=== PATIENT | male | born 1935 | race Caucasian/White ===

== ENCOUNTER 2017-11-10 19:55 | Inpatient (IN) | payer MEDICARE, BC ==
--- NOTE | 2017-11-10 21:07 | RAD ---
INDICATION: Cough. Recent bronchitis. Cardiac disease. COMPARISON: September 08, 2017 chest radiograph. TECHNIQUE: Dual energy PA and routine lateral views of the chest were obtained. REPORT: New peripheral alveolar consolidation at the RIGHT midlung zone likely involving the RIGHT upper lobe. Additional mild alveolar consolidation at the RIGHT lung base. Negative for pleural effusion or pneumothorax. The heart, pulmonary vasculature, and mediastinal contours are unremarkable. IMPRESSION: RIGHT lung inflammatory infiltrates new compared with the September 08, 2017 exam. Radiographic follow-up after therapy warranted to assess for resolution.
[2017-11-10 21:10] LABS: Urine Appearance Clear; Urine Blood 1+ (Negative); Urine Color Yellow; Urine Ketones 1+ (Negative); Urine Protein Negative (Negative); Urine Specific Gravity 1.023 (1.010-1.030); Urine Urobilinogen Positive (Negative)
[2017-11-10] MEDS ORDERED: cefTRIAXone(*) 1 GM in NS 0.9% 50 ML* 50 ML IVPB ONE (22:11)
[2017-11-10] MEDS ORDERED: Azithromycin IV(*) 500 MG in NS 0.9% 250 ML* 250 ML IVPB ONE (22:11)
[2017-11-10 22:24] LABS: ABS Basophils 0.1 10^3/ul (0-0.2); ABS Eosinophils 0 10^3/ul (0-0.6); ABS Lymphocytes 1.5 10^3/ul (1.0-4.8); ABS Monocytes 1.1 10^3/ul (0-0.8); ABS Neutrophils 12.7 10^3/ul (1.5-7.7); ABS Nucleated RBC 0 10^3/ul; Eosinophil % 0.1 % (0-6); Hematocrit 41 % (42-52); Hemoglobin 13.8 g/dl (14.0-18.0); Lymphocyte % 9.5 % (25-47); Mean Corpuscular HGB Conc 34 g/dl (31-36); Mean Corpuscular Hemoglobin 31 pg (27-31); Mean Corpuscular Volume 91 fL (80-94); Mean Platelet Volume 6.8 um3 (7.4-10.4); Nucleated Red Blood Cells % 0; Platelet Count 246 10^3/ul (150-450); Red Blood Count 4.47 10^6/ul (4.0-5.4); Red Cell Distribution Width 14 % (10.5-15); White Blood Count 15.3 10^3/ul (3.5-10.8)
[2017-11-10 22:44] LABS: INR 1.26 (0.77-1.02)
[2017-11-10 22:46] LABS: EGFR Non-African American 64.9 (>60)
[2017-11-11] MEDS ORDERED: Ondansetron ODT TAB* 4 MG PO PRN (01:39)
[2017-11-11] MEDS ORDERED: Melatonin 3 MG TAB PO PRN (01:39)
[2017-11-11] MEDS ORDERED: Albuterol 2.5 MG/3 ML NEB.SOL* (0.083%) INH PRN (01:39)
[2017-11-11] MEDS ORDERED: NS 0.9% 1000 ML* 1,000 ML IV SCH (01:45)
[2017-11-11] MEDS: Benzonatate CAP* 100 MG PO PRN ×2 (03:01→18:46)
[2017-11-11] MEDS: Acetaminoph/Cod 120/12 mg LIQ* 5 ML UDC PO PRN ×2 (03:02→14:28)
--- NOTE | 2017-11-11 03:17 | HP ---
H&P (Free Text) History and Physical: PCP: PRISCILLA Crouch MD Date/Time: 11/11/2017 0130 CC: cough HPI: Mr Hill is a 82YO male HX HTN, HLD, & Petersen's/GERD who garcia in [place] and was there with his in August when he was diagnosed with "bronchitis" and treated with an unknown antibiotic. In early September, his unexpectedly of an NH. When he was returning to the area with his grand-daughter who is an GRE[employer] MARKETING ANALYST, they stopped at an urgent care and he was diagnosed with pneumonia and his antibiotic changed, again he is uncertain as to the name. His PCP extended this ABX to 14 days, but he continues to have a prominent cough producing sputum mainly in the AMs. He has had intermittent F/C & rigors, but no sweats. He reports chest discomfort only with cough. There has been no N/V/D, CHARLES, or other issues. PMedHx HTN HLD GERD Petersen's esophagus BPH Ambulatory Orders Aspirin 81 mg CHEW TAB* [Aspirin Low Dose TAB*] 81 mg PO DAILY 04/28/14 Esomeprazole(NF) [NEXium(NF)] 20 mg PO BID 04/28/14 Gluc Oropeza/Chondro Oropeza A/Vit C/Mn [Glucosamine/Chondroitin] 1 cap PO BID 04/28/14 Hydrochlorothiazide TAB* [Hydrodiuril TAB*] 25 mg PO DAILY 04/28/14 Simvastatin TAB(NF) [Zocor(NF)] 40 mg PO 1700 04/28/14 Meclizine TAB* [Antivert TAB*] 25 mg PO TID PRN 03/31/15 Zolpidem Tartrate [Ambien] 5 mg PO BEDTIME PRN 03/31/15 Flomax 0.4 mg PO DAILY 11/11/17 Allergies No Known Allergies Allergy (Verified 06/21/17 14:12) PSurgHx appendectomy SocHx: former smoker w/ ~25PYHX, rare alcohol, no recreational drugs; recently , lives alone; 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; full codes status FamHx: reviewed & non-contributory to current complaint ROS: as above, otherwise reviewed and all were negative vitals: Vital Signs Temp 37.1 C 11/11/17 02:26 Pulse 88 05/11/18 02:26 Resp 18 11/11/17 03:02 BP 146/75 11/11/17 02:26 Pulse Ox 96 11/11/17 02:26 Intake & Output 11/10/17 11/10/17 11/11/17 11:59 23:59 11:59 Intake Total 250 50 Balance 250 50 Weight 78.018 kg Intake: IV Fluids 250 50 Constitutional: NAD, normally developed, overweight white male HEENM: atraumatic; sclera/conjunctiva: anicteric/clear; hearing: clinically intact; oropharynx: clear, mucosa moist Neck: soft tissue: non-tender; thyroid: normal Pulmonary: scant R>L crackles, fair to good aeration, no accessory muscle use CV: RR/RR, normal S1S2, no carotid bruit, no jugular venous distention, 2+ B DP/ PT, no edema Abdominal: soft, non-distended, non-tender, no rebound/guarding/rigidity, normoactive bowel sounds, no hepatosplenomegaly or masses, no costovertebral angle tenderness Musculoskeletal: general: grossly intact, non-tender Integumental: normal appearance and texture of exposed skin Psychiatric orientation: AA&O to PPS affect: fatigued mood: cooperative eye contact: fair content: reliable responses: timely insight: good Testing: Lab Results 11/10/17 11/10/17 11/10/17 Range/Units 20:12 21:21 22:13 WBC (3.5-10.8) 10^3/ul RBC (4.0-5.4) 10^6/ul Hgb (14.0-18.0) g/dl Hct (42-52) % MCV (80-94) fL MCH (27-31) pg MCHC (31-36) g/dl RDW (10.5-15) % Plt Count (150-450) 10^3/ul MPV (7.4-10.4) um3 Neut % (Auto) (38-83) % Lymph % (Auto) (25-47) % Mcclain % (Auto) (0-7) % Eos % (Auto) (0-6) % Baso % (Auto) (0-2) % Absolute Neuts (auto) (1.5-7.7) 10^3/ul Absolute Lymphs (auto) (1.0-4.8) 10^3/ul Absolute Monos (auto) (0-0.8) 10^3/ul Absolute Eos (auto) (0-0.6) 10^3/ul Absolute Basos (auto) (0-0.2) 10^3/ul Absolute Nucleated RBC 10^3/ul Nucleated RBC % INR (Anticoag Therapy) (0.77-1.02) APTT (26.0-36.3) seconds Sodium 132 L (139-145) mmol/L Potassium 3.8 (3.5-5.0) mmol/L Chloride 96 L (101-111) mmol/L Carbon Dioxide 27 (22-32) mmol/L Anion Gap 9 (2-11) mmol/L BUN 18 (6-24) mg/dL Creatinine 1.09 (0.67-1.17) mg/dL Est GFR ( Amer) 83.5 (>60) Est GFR (Non-Af Amer) 64.9 (>60) BUN/Creatinine Ratio 16.5 (8-20) Glucose 120 H (70-100) mg/dL Lactic Acid (0.5-2.0) mmol/L Calcium 9.3 (8.6-10.3) mg/dL Total Bilirubin 1.00 (0.2-1.0) mg/dL AST 20 (13-39) U/L ALT 11 (7-52) U/L Alkaline Phosphatase 44 (34-104) U/L Troponin I 0.01 (<0.04) ng/mL B-Natriuretic Peptide ( - 100) pg/mL Total Protein 7.4 (6.4-8.9) g/dL Albumin 3.9 (3.2-5.2) g/dL Globulin 3.5 (2-4) g/dL Albumin/Globulin Ratio 1.1 (1-3) Urine Color Yellow Urine Appearance Clear Urine pH 6.0 (5-9) Ur Specific [place] 1.023 (1.010-1.030) Urine Protein Negative (Negative) Urine Ketones 1+ A (Negative) Urine Blood 1+ A (Negative) Urine Nitrate Negative (Negative) Urine Bilirubin Negative (Negative) Urine Urobilinogen Positive A (Negative) Ur Leukocyte Esterase Negative (Negative) Urine WBC (Auto) Trace(0-5/hpf) (Absent) Urine RBC (Auto) 2+(6-10/hpf) A (Absent) Ur Squamous Epith Cells Present A (Absent) Urine Bacteria Absent (Absent) Urine Glucose Negative (Negative) Influenza A (Rapid) Negative (Negative) Influenza B (Rapid) Negative (Negative) 11/10/17 11/10/17 11/10/17 Range/Units 22:13 22:13 22:14 WBC 15.3 H (3.5-10.8) 10^3/ul RBC 4.47 (4.0-5.4) 10^6/ul Hgb 13.8 L (14.0-18.0) g/dl Hct 41 L (42-52) % MCV 91 (80-94) fL MCH 31 (27-31) pg MCHC 34 (31-36) g/dl RDW 14 (10.5-15) % Plt Count 246 (150-450) 10^3/ul MPV 6.8 L (7.4-10.4) um3 Neut % (Auto) 82.8 (38-83) % Lymph % (Auto) 9.5 L (25-47) % Mcclain % (Auto) 7.1 H (0-7) % Eos % (Auto) 0.1 (0-6) % Baso % (Auto) 0.5 (0-2) % Absolute Neuts (auto) 12.7 H (1.5-7.7) 10^3/ul Absolute Lymphs (auto) 1.5 (1.0-4.8) 10^3/ul Absolute Monos (auto) 1.1 H (0-0.8) 10^3/ul Absolute Eos (auto) 0 (0-0.6) 10^3/ul Absolute Basos (auto) 0.1 (0-0.2) 10^3/ul Absolute Nucleated RBC 0 10^3/ul Nucleated RBC % 0 INR (Anticoag Therapy) (0.77-1.02) APTT (26.0-36.3) seconds Sodium (139-145) mmol/L Potassium (3.5-5.0) mmol/L Chloride (101-111) mmol/L Carbon Dioxide (22-32) mmol/L Anion Gap (2-11) mmol/L BUN (6-24) mg/dL Creatinine (0.67-1.17) mg/dL Est GFR ( Amer) (>60) Est GFR (Non-Af Amer) (>60) BUN/Creatinine Ratio (8-20) Glucose (70-100) mg/dL Lactic Acid 1.0 (0.5-2.0) mmol/L Calcium (8.6-10.3) mg/dL Total Bilirubin (0.2-1.0) mg/dL AST (13-39) U/L ALT (7-52) U/L Alkaline Phosphatase (34-104) U/L Troponin I (<0.04) ng/mL B-Natriuretic Peptide 82 ( - 100) pg/mL Total Protein (6.4-8.9) g/dL Albumin (3.2-5.2) g/dL Globulin (2-4) g/dL Albumin/Globulin Ratio (1-3) Urine Color Urine Appearance Urine pH (5-9) Ur Specific [place] (1.010-1.030) Urine Protein (Negative) Urine Ketones (Negative) Urine Blood (Negative) Urine Nitrate (Negative) Urine Bilirubin (Negative) Urine Urobilinogen (Negative) Ur Leukocyte Esterase (Negative) Urine WBC (Auto) (Absent) Urine RBC (Auto) (Absent) Ur Squamous Epith Cells (Absent) Urine Bacteria (Absent) Urine Glucose (Negative) Influenza A (Rapid) (Negative) Influenza B (Rapid) (Negative) 11/10/17 Range/Units 22:14 WBC (3.5-10.8) 10^3/ul RBC (4.0-5.4) 10^6/ul Hgb (14.0-18.0) g/dl Hct (42-52) % MCV (80-94) fL MCH (27-31) pg MCHC (31-36) g/dl RDW (10.5-15) % Plt Count (150-450) 10^3/ul MPV (7.4-10.4) um3 Neut % (Auto) (38-83) % Lymph % (Auto) (25-47) % Mcclain % (Auto) (0-7) % Eos % (Auto) (0-6) % Baso % (Auto) (0-2) % Absolute Neuts (auto) (1.5-7.7) 10^3/ul Absolute Lymphs (auto) (1.0-4.8) 10^3/ul Absolute Monos (auto) (0-0.8) 10^3/ul Absolute Eos (auto) (0-0.6) 10^3/ul Absolute Basos (auto) (0-0.2) 10^3/ul Absolute Nucleated RBC 10^3/ul Nucleated RBC % INR (Anticoag Therapy) 1.26 H (0.77-1.02) APTT 30.2 (26.0-36.3) seconds Sodium (139-145) mmol/L Potassium (3.5-5.0) mmol/L Chloride (101-111) mmol/L Carbon Dioxide (22-32) mmol/L Anion Gap (2-11) mmol/L BUN (6-24) mg/dL Creatinine (0.67-1.17) mg/dL Est GFR ( Amer) (>60) Est GFR (Non-Af Amer) (>60) BUN/Creatinine Ratio (8-20) Glucose (70-100) mg/dL Lactic Acid (0.5-2.0) mmol/L Calcium (8.6-10.3) mg/dL Total Bilirubin (0.2-1.0) mg/dL AST (13-39) U/L ALT (7-52) U/L Alkaline Phosphatase (34-104) U/L Troponin I (<0.04) ng/mL B-Natriuretic Peptide ( - 100) pg/mL Total Protein (6.4-8.9) g/dL Albumin (3.2-5.2) g/dL Globulin (2-4) g/dL Albumin/Globulin Ratio (1-3) Urine Color Urine Appearance Urine pH (5-9) Ur Specific Whitman (1.010-1.030) Urine Protein (Negative) Urine Ketones (Negative) Urine Blood (Negative) Urine Nitrate (Negative) Urine Bilirubin (Negative) Urine Urobilinogen (Negative) Ur Leukocyte Esterase (Negative) Urine WBC (Auto) (Absent) Urine RBC (Auto) (Absent) Ur Squamous Epith Cells (Absent) Urine Bacteria (Absent) Urine Glucose (Negative) Influenza A (Rapid) (Negative) Influenza B (Rapid) (Negative) ECG, personally reviewed: NSR rate 89, no ischemia CXR, personally reviewed: IMPRESSION: RIGHT lung inflammatory infiltrates new compared with the September 08, 2017 exam. Radiographic follow-up after therapy warranted to assess for resolution. Impression: 82M HX HTN, HLD, GERD, & Petersen's esophagus presents with RML pneumonia failed outpatient ABX DIAGNOSIS & PLAN Primary sepsis (HR >90, leukocytosis >12) 2nd to RML pneumonia : IV ABX : IVFs : blood & sputum CXs : urine Legionella & S pneumo antigens : supplemental oxygen : anti-tussives : supportive care Secondary HTN : hold HCTZ HLD : continue simvastatins GERD/Petersen's esophagus : PO omeprazole BPH : continue tamsulosin Admission Rational: 82M sepsis 2nd RML pneumonia failed outpatient ABX DVTp: SCDs & heparin SQ Code Status: full HCP: sonBurton
[2017-11-11] MEDS: Omeprazole CAP* 20 MG PO SCH (05:51)
--- NOTE | 2017-11-11 06:20 | ED ---
Christiano Nieves Rebecca, scribed for Anotni Mooney MD on 11/10/17 at 2104 . Respiratory - HPI Summary HPI Summary: Pt is an 82 y/o M who presents to ED c/o cough for 3-4 days. Cough is productive with yellow sputum and no blood. Has not treated symptoms with any medication. Additionally c/o fever (101.3), fatigue, generalized weakness and balance loss while ambulating. Denies CP, SOB. Takes ASA daily. Is able to lay flat without experiencing dyspnea. SHx former smoker - quit in 1981. PMHx bronchitis, PNA ( 2 courses of Abx.). Reports his PCP, Dr. Wu, has previously mentioned crackles to auscultation of his lungs. - History of Current Complaint Chief Complaint: EDUpperRespComplaint Stated Complaint: ABNORM GI ISSUE/DIZZINESS Time Seen by Provider: 11/10/17 20:54 Hx Obtained From: Patient Onset/Duration: Lasting Days - 3-4 days, Still Present Current Severity: None Pain Intensity: 0 Character: Cough (Productive) Sputum Color: Yellow Associated Signs and Symptoms: Fever - Allergy/Home Medications Allergies/Adverse Reactions: Allergies Allergy/AdvReac Type Severity Reaction Status Date / Time No Known Allergies Allergy Verified 06/21/17 14:12 Home Medications: Home Medications Flomax 0.4 mg PO DAILY 11/11/17 [History Confirmed 11/11/17] PMH/Surg Hx/FS Hx/Imm Hx Endocrine/Hematology History: Denies: Hx Diabetes Cardiovascular History: Denies: Hx Hypertension, Hx Pacemaker/ICD History: Denies: Hx Renal Disease Sensory History: Denies: Hx Hearing Aid Psychiatric History: Denies: Hx Panic Disorder - Cancer History Cancer Type, 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 cardiac stent 1998. fistula;. pilonidal cyst;. APPENDECTOMY Infectious Disease History: No Infectious Disease History: Denies: History Other Infectious Disease, Traveled Outside the [place] in Last 30 Days - Family History Known Family History: Positive: Cardiac Disease, Diabetes, Other - Colon CA - Social History Alcohol Use: Rare Substance Use Type: Reports: None Smoking Status (MU): Former Smoker Have You Smoked in the Last Year: No Review of Systems Positive: Fever, Fatigue, Other - Generalized weakness Negative: Chest Pain Positive: Cough. Negative: Shortness Of Breath Neurological: Other - Balance loss All Other Systems Reviewed And Are Negative: Yes Physical Exam - Summary Physical Exam Summary: GENERAL: ~Patient is a well developed and nourished M who is lying comfortable in the stretcher. ~Patient is not in any acute respiratory distress. HEAD AND FACE: Normocephalic EYES: PERRLA, EOMI x 2. EARS: Hearing grossly intact. MOUTH: Oropharynx within normal limits. NECK: Supple, trachea is midline, no adenopathy, no JVD, no carotid bruit. CHEST: Symmetric, no tenderness at palpation LUNGS: Crackles bilaterally. No wheezing. CVS: Regular rate and rhythm, S1 and S2 present, no murmurs or gallops appreciated. ABDOMEN: Soft, non-tender. Bowel sounds are normal. No abdominal abnormal pulsations. EXTREMITIES: Full ROM in all major joints, no cyanosis or clubbing. 1+ pitting edema, bilaterally. NEURO: Alert and oriented x 3. No acute neurological deficits. Speech is normal and follows commands. SKIN: Dry and warm Triage Information Reviewed: Yes Vital Signs On Initial Exam: Initial Vitals Temp Pulse Resp BP Pulse Ox 99.6 F 116 16 115/58 99 11/10/17 20:08 11/10/17 20:08 11/10/17 20:08 11/10/17 20:08 11/10/17 20:08 Vital Signs Reviewed: Yes Diagnostics - Vital Signs Vital Signs Temp Pulse Resp BP Pulse Ox 11/10/17 20:08 99.6 F 116 16 115/58 99 - Laboratory Lab Results: Lab Results 11/10/17 11/10/17 11/10/17 Range/Units 20:12 21:21 22:13 WBC (3.5-10.8) 10^3/ul RBC (4.0-5.4) 10^6/ul Hgb (14.0-18.0) g/dl Hct (42-52) % MCV (80-94) fL MCH (27-31) pg MCHC (31-36) g/dl RDW (10.5-15) % Plt Count (150-450) 10^3/ul MPV (7.4-10.4) um3 Neut % (Auto) (38-83) % Lymph % (Auto) (25-47) % [place] % (Auto) (0-7) % Eos % (Auto) (0-6) % Baso % (Auto) (0-2) % Absolute Neuts (auto) (1.5-7.7) 10^3/ul Absolute Lymphs (auto) (1.0-4.8) 10^3/ul Absolute Monos (auto) (0-0.8) 10^3/ul Absolute Eos (auto) (0-0.6) 10^3/ul Absolute Basos (auto) (0-0.2) 10^3/ul Absolute Nucleated RBC 10^3/ul Nucleated RBC % INR (Anticoag Therapy) (0.77-1.02) APTT (26.0-36.3) seconds Sodium 132 L (139-145) mmol/L Potassium 3.8 (3.5-5.0) mmol/L Chloride 96 L (101-111) mmol/L Carbon Dioxide 27 (22-32) mmol/L Anion Gap 9 (2-11) mmol/L BUN 18 (6-24) mg/dL Creatinine 1.09 (0.67-1.17) mg/dL Est GFR ( Amer) 83.5 (>60) Est GFR (Non-Af Amer) 64.9 (>60) BUN/Creatinine Ratio 16.5 (8-20) Glucose 120 H (70-100) mg/dL Lactic Acid (0.5-2.0) mmol/L Calcium 9.3 (8.6-10.3) mg/dL Total Bilirubin 1.00 (0.2-1.0) mg/dL AST 20 (13-39) U/L ALT 11 (7-52) U/L Alkaline Phosphatase 44 (34-104) U/L Troponin I 0.01 (<0.04) ng/mL B-Natriuretic Peptide ( - 100) pg/mL Total Protein 7.4 (6.4-8.9) g/dL Albumin 3.9 (3.2-5.2) g/dL Globulin 3.5 (2-4) g/dL Albumin/Globulin Ratio 1.1 (1-3) Urine Color Yellow Urine Appearance Clear Urine pH 6.0 (5-9) Ur Specific [place] 1.023 (1.010-1.030) Urine Protein Negative (Negative) Urine Ketones 1+ A (Negative) Urine Blood 1+ A (Negative) Urine Nitrate Negative (Negative) Urine Bilirubin Negative (Negative) Urine Urobilinogen Positive A (Negative) Ur Leukocyte Esterase Negative (Negative) Urine WBC (Auto) Trace(0-5/hpf) (Absent) Urine RBC (Auto) 2+(6-10/hpf) A (Absent) Ur Squamous Epith Cells Present A (Absent) Urine Bacteria Absent (Absent) Urine Glucose Negative (Negative) Influenza A (Rapid) Negative (Negative) Influenza B (Rapid) Negative (Negative) 11/10/17 11/10/17 11/10/17 Range/Units 22:13 22:13 22:14 WBC 15.3 H (3.5-10.8) 10^3/ul RBC 4.47 (4.0-5.4) 10^6/ul Hgb 13.8 L (14.0-18.0) g/dl Hct 41 L (42-52) % MCV 91 (80-94) fL MCH 31 (27-31) pg MCHC 34 (31-36) g/dl RDW 14 (10.5-15) % Plt Count 246 (150-450) 10^3/ul MPV 6.8 L (7.4-10.4) um3 Neut % (Auto) 82.8 (38-83) % Lymph % (Auto) 9.5 L (25-47) % [place] % (Auto) 7.1 H (0-7) % Eos % (Auto) 0.1 (0-6) % Baso % (Auto) 0.5 (0-2) % Absolute Neuts (auto) 12.7 H (1.5-7.7) 10^3/ul Absolute Lymphs (auto) 1.5 (1.0-4.8) 10^3/ul Absolute Monos (auto) 1.1 H (0-0.8) 10^3/ul Absolute Eos (auto) 0 (0-0.6) 10^3/ul Absolute Basos (auto) 0.1 (0-0.2) 10^3/ul Absolute Nucleated RBC 0 10^3/ul Nucleated RBC % 0 INR (Anticoag Therapy) (0.77-1.02) APTT (26.0-36.3) seconds Sodium (139-145) mmol/L Potassium (3.5-5.0) mmol/L Chloride (101-111) mmol/L Carbon Dioxide (22-32) mmol/L Anion Gap (2-11) mmol/L BUN (6-24) mg/dL Creatinine (0.67-1.17) mg/dL Est GFR ( Amer) (>60) Est GFR (Non-Af Amer) (>60) BUN/Creatinine Ratio (8-20) Glucose (70-100) mg/dL Lactic Acid 1.0 (0.5-2.0) mmol/L Calcium (8.6-10.3) mg/dL Total Bilirubin (0.2-1.0) mg/dL AST (13-39) U/L ALT (7-52) U/L Alkaline Phosphatase (34-104) U/L Troponin I (<0.04) ng/mL B-Natriuretic Peptide 82 ( - 100) pg/mL Total Protein (6.4-8.9) g/dL Albumin (3.2-5.2) g/dL Globulin (2-4) g/dL Albumin/Globulin Ratio (1-3) Urine Color Urine Appearance Urine pH (5-9) Ur Specific [place] (1.010-1.030) Urine Protein (Negative) Urine Ketones (Negative) Urine Blood (Negative) Urine Nitrate (Negative) Urine Bilirubin (Negative) Urine Urobilinogen (Negative) Ur Leukocyte Esterase (Negative) Urine WBC (Auto) (Absent) Urine RBC (Auto) (Absent) Ur Squamous Epith Cells (Absent) Urine Bacteria (Absent) Urine Glucose (Negative) Influenza A (Rapid) (Negative) Influenza B (Rapid) (Negative) 11/10/17 Range/Units 22:14 WBC (3.5-10.8) 10^3/ul RBC (4.0-5.4) 10^6/ul Hgb (14.0-18.0) g/dl Hct (42-52) % MCV (80-94) fL MCH (27-31) pg MCHC (31-36) g/dl RDW (10.5-15) % Plt Count (150-450) 10^3/ul MPV (7.4-10.4) um3 Neut % (Auto) (38-83) % Lymph % (Auto) (25-47) % [place] % (Auto) (0-7) % Eos % (Auto) (0-6) % Baso % (Auto) (0-2) % Absolute Neuts (auto) (1.5-7.7) 10^3/ul Absolute Lymphs (auto) (1.0-4.8) 10^3/ul Absolute Monos (auto) (0-0.8) 10^3/ul Absolute Eos (auto) (0-0.6) 10^3/ul Absolute Basos (auto) (0-0.2) 10^3/ul Absolute Nucleated RBC 10^3/ul Nucleated RBC % INR (Anticoag Therapy) 1.26 H (0.77-1.02) APTT 30.2 (26.0-36.3) seconds Sodium (139-145) mmol/L Potassium (3.5-5.0) mmol/L Chloride (101-111) mmol/L Carbon Dioxide (22-32) mmol/L Anion Gap (2-11) mmol/L BUN (6-24) mg/dL Creatinine (0.67-1.17) mg/dL Est GFR ( Amer) (>60) Est GFR (Non-Af Amer) (>60) BUN/Creatinine Ratio (8-20) Glucose (70-100) mg/dL Lactic Acid (0.5-2.0) mmol/L Calcium (8.6-10.3) mg/dL Total Bilirubin (0.2-1.0) mg/dL AST (13-39) U/L ALT (7-52) U/L Alkaline Phosphatase (34-104) U/L Troponin I (<0.04) ng/mL B-Natriuretic Peptide ( - 100) pg/mL Total Protein (6.4-8.9) g/dL Albumin (3.2-5.2) g/dL Globulin (2-4) g/dL Albumin/Globulin Ratio (1-3) Urine Color Urine Appearance Urine pH (5-9) Ur Specific [place] (1.010-1.030) Urine Protein (Negative) Urine Ketones (Negative) Urine Blood (Negative) Urine Nitrate (Negative) Urine Bilirubin (Negative) Urine Urobilinogen (Negative) Ur Leukocyte Esterase (Negative) Urine WBC (Auto) (Absent) Urine RBC (Auto) (Absent) Ur Squamous Epith Cells (Absent) Urine Bacteria (Absent) Urine Glucose (Negative) Influenza A (Rapid) (Negative) Influenza B (Rapid) (Negative) Result Diagrams: 11/10/17 22:14 11/10/17 22:13 Lab Statement: Any lab studies that have been ordered have been reviewed, and results considered in the medical decision making process. - Radiology CXR Xray Interpretation: Positive (See Comments) - RIGHT lung inflammatory infiltrates new compared with the September 08, 2017 exam. Radiographic follow-up after therapy warranted to assess for resolution. ED physician reviewed this radiology report. Radiology Interpretation Completed By: Radiologist - EKG 2130 Cardiac Rate: NL - 89 bpm EKG Rhythm: Sinus Rhythm EKG Interpretation: Left atrial enlargement Disposition - Course Assessment/Plan: This is an 82 y/o M who presents to ED with productive cough. His workup was remarkable for WBC of 15.3. His CXR confirms PNA. Pt was recently on Abx for outpatient PNA and so will need to be admitted for Abx given that he failed outpatient. Discussed results with the pt and I presented the case to the hospitalist. - Diagnoses Provider Diagnoses: Pneumonia - Physician Notifications Discussed Care Of Patient With: Oswald Mcdowell Time Discussed With Above Provider: 00:32 Instructed by Provider To: Other - Accepts pt for admission. Discharge - Sign-Out/Discharge Documenting (check all that apply): Discharge/Admit/Transfer - Admit - Discharge Plan Condition: Stable Disposition: ADMITTED TO [facility] - Billing Disposition and Condition Condition: STABLE [place] [facility] [place] The documentation as recorded by the Christiano duong Rebecca accurately reflects the service I personally performed and the decisions made by me, Antoni Mooney MD.
[2017-11-11 06:45] LABS: ABS Basophils 0.1 10^3/ul (0-0.2); ABS Eosinophils 0 10^3/ul (0-0.6); ABS Lymphocytes 1.5 10^3/ul (1.0-4.8); ABS Monocytes 1.1 10^3/ul (0-0.8); ABS Neutrophils 11.5 10^3/ul (1.5-7.7); ABS Nucleated RBC 0 10^3/ul; Eosinophil % 0.1 % (0-6); Hematocrit 37 % (42-52); Hemoglobin 12.8 g/dl (14.0-18.0); Lymphocyte % 10.3 % (25-47); Mean Corpuscular HGB Conc 35 g/dl (31-36); Mean Corpuscular Hemoglobin 32 pg (27-31); Mean Corpuscular Volume 91 fL (80-94); Mean Platelet Volume 6.8 um3 (7.4-10.4); Nucleated Red Blood Cells % 0.1; Platelet Count 232 10^3/ul (150-450); Red Blood Count 4.07 10^6/ul (4.0-5.4); Red Cell Distribution Width 14 % (10.5-15); White Blood Count 14.1 10^3/ul (3.5-10.8)
[2017-11-11 07:01] LABS: EGFR Non-African American 70.9 (>60)
[2017-11-11] MEDS: Aspirin 81 mg CHEW TAB* 81 MG TAB.CHEW PO SCH (09:46)
[2017-11-11] MEDS: Tamsulosin CAP* 0.4 MG PO SCH (09:46)
[2017-11-11] MEDS: Docusate CAP* 100 MG PO SCH ×2 (09:47→20:11)
[2017-11-11] MEDS ORDERED: Potassium Chlor TAB* 20 MEQ TAB.ER PO ONE (13:04)
--- NOTE | 2017-11-11 16:57 | PN ---
Subjective Date of Service: 11/11/17 Interval History: Mr. Winchester reports feeling a little better today. He still has some productive cough with thick sputum. No fever or chills last night. He is really wishing to have regular diet a coffee for lunch. Denies chest pain, palpitations, wheezing or SOB. Family History: Unchanged from Admission Social History: Unchanged from Admission Past Medical History: Unchanged from Admission Objective Active Medications: Acetaminophen (Tylenol Tab*) 650 mg PO Q6H PRN PRN Reason: FEVER/PAIN Acetaminophen/Codeine Phosphate (Tylenol/Codeine 120/12 Liq*) 5 ml PO Q6H PRN PRN Reason: cough Last Admin: 11/11/17 14:28 Dose: 5 ml Albuterol (Ventolin 2.5 Mg/3 Ml Neb.Fartun*) 2.5 mg INH Q2H PRN PRN Reason: SOB/WHEEZING Aspirin (Aspirin 81 Mg Chew Tab*) 81 mg PO DAILY [facility] Last Admin: 11/11/17 09:46 Dose: 81 mg Atorvastatin Calcium (Lipitor*) 20 mg PO 1700 [facility] Benzonatate (Tessalon Cap*) 200 mg PO TID PRN PRN Reason: cough Last Admin: 11/11/17 03:01 Dose: 200 mg Docusate Sodium (Colace Cap*) 200 mg PO BID [facility] Last Admin: 11/11/17 09:47 Dose: Not Given Guaifenesin (Mucinex*) 600 mg PO BID [facility] Heparin Sodium (Porcine) (Heparin Vial(*)) 5,000 units SUBCUT Q8HR [facility] Ceftriaxone Sodium 1,000 mg/ (Sodium Chloride) 50 mls @ 200 mls/hr IVPB Q24H [facility] Azithromycin 500 mg/ Sodium (Chloride) 250 mls @ 250 mls/hr IVPB Q24H [facility] Melatonin (Melatonin (Nf)) 3 mg PO BEDTIME PRN; Protocol PRN Reason: Sleep Omeprazole (Prilosec Cap*) 20 mg PO DAILY@0600 [facility] Last Admin: 11/11/17 05:51 Dose: 20 mg Ondansetron HCl (Zofran Odt Tab*) 4 mg PO Q6H PRN PRN Reason: NAUSEA/VOMITING Tamsulosin HCl (Flomax Cap*) 0.4 mg PO DAILY [facility] Last Admin: 11/11/17 09:46 Dose: 0.4 mg Vital Signs - 8 hr 11/11/17 11/11/17 14:28 16:22 Respiratory 17 16 Rate Oxygen Devices in Use Now: None Appearance: Appears comfortable and in NAD Eyes: No Scleral Icterus, PERRLA Ears/Nose/Mouth/Throat: Clear Oropharnyx, Mucous Membranes Moist Neck: NL Appearance and Movements; NL JVP, Trachea Midline Respiratory: Symmetrical Chest Expansion and Respiratory Effort, - - Lungs with minimal bibasilar rhonchi noted. No wheezing. Cardiovascular: NL Sounds; No Murmurs; No JVD, RRR Abdominal: NL Sounds; No Tenderness; No Distention Lymphatic: No Cervical Adenopathy Extremities: No Edema, No Clubbing, Cyanosis Skin: No Rash or Ulcers Neurological: Alert and Oriented x 3, NL Sensation, NL Muscle Strength and Tone Nutrition: Taking PO's Result Diagrams: 11/11/17 06:15 11/11/17 06:15 Additional Lab and Data: Lab Results 11/10/17 11/10/17 11/10/17 Range/Units 20:12 21:21 22:13 WBC (3.5-10.8) 10^3/ul RBC (4.0-5.4) 10^6/ul Hgb (14.0-18.0) g/dl Hct (42-52) % MCV (80-94) fL MCH (27-31) pg MCHC (31-36) g/dl RDW (10.5-15) % Plt Count (150-450) 10^3/ul MPV (7.4-10.4) um3 Neut % (Auto) (38-83) % Lymph % (Auto) (25-47) % [place] % (Auto) (0-7) % Eos % (Auto) (0-6) % Baso % (Auto) (0-2) % Absolute Neuts (auto) (1.5-7.7) 10^3/ul Absolute Lymphs (auto) (1.0-4.8) 10^3/ul Absolute Monos (auto) (0-0.8) 10^3/ul Absolute Eos (auto) (0-0.6) 10^3/ul Absolute Basos (auto) (0-0.2) 10^3/ul Absolute Nucleated RBC 10^3/ul Nucleated RBC % INR (Anticoag Therapy) (0.77-1.02) APTT (26.0-36.3) seconds Sodium 132 L (139-145) mmol/L Potassium 3.8 (3.5-5.0) mmol/L Chloride 96 L (101-111) mmol/L Carbon Dioxide 27 (22-32) mmol/L Anion Gap 9 (2-11) mmol/L BUN 18 (6-24) mg/dL Creatinine 1.09 (0.67-1.17) mg/dL Est GFR ( Amer) 83.5 (>60) Est GFR (Non-Af Amer) 64.9 (>60) BUN/Creatinine Ratio 16.5 (8-20) Glucose 120 H (70-100) mg/dL Lactic Acid (0.5-2.0) mmol/L Calcium 9.3 (8.6-10.3) mg/dL Total Bilirubin 1.00 (0.2-1.0) mg/dL AST 20 (13-39) U/L ALT 11 (7-52) U/L Alkaline Phosphatase 44 (34-104) U/L Troponin I 0.01 (<0.04) ng/mL B-Natriuretic Peptide ( - 100) pg/mL Total Protein 7.4 (6.4-8.9) g/dL Albumin 3.9 (3.2-5.2) g/dL Globulin 3.5 (2-4) g/dL Albumin/Globulin Ratio 1.1 (1-3) Urine Color Yellow Urine Appearance Clear Urine pH 6.0 (5-9) Ur Specific [place] 1.023 (1.010-1.030) Urine Protein Negative (Negative) Urine Ketones 1+ A (Negative) Urine Blood 1+ A (Negative) Urine Nitrate Negative (Negative) Urine Bilirubin Negative (Negative) Urine Urobilinogen Positive A (Negative) Ur Leukocyte Esterase Negative (Negative) Urine WBC (Auto) Trace(0-5/hpf) (Absent) Urine RBC (Auto) 2+(6-10/hpf) A (Absent) Ur Squamous Epith Cells Present A (Absent) Urine Bacteria Absent (Absent) Urine Glucose Negative (Negative) Influenza A (Rapid) Negative (Negative) Influenza B (Rapid) Negative (Negative) 05/10/18 05/10/18 05/10/18 Range/Units 22:13 22:13 22:14 WBC 15.3 H (3.5-10.8) 10^3/ul RBC 4.47 (4.0-5.4) 10^6/ul Hgb 13.8 L (14.0-18.0) g/dl Hct 41 L (42-52) % MCV 91 (80-94) fL MCH 31 (27-31) pg MCHC 34 (31-36) g/dl RDW 14 (10.5-15) % Plt Count 246 (150-450) 10^3/ul MPV 6.8 L (7.4-10.4) um3 Neut % (Auto) 82.8 (38-83) % Lymph % (Auto) 9.5 L (25-47) % [place] % (Auto) 7.1 H (0-7) % Eos % (Auto) 0.1 (0-6) % Baso % (Auto) 0.5 (0-2) % Absolute Neuts (auto) 12.7 H (1.5-7.7) 10^3/ul Absolute Lymphs (auto) 1.5 (1.0-4.8) 10^3/ul Absolute Monos (auto) 1.1 H (0-0.8) 10^3/ul Absolute Eos (auto) 0 (0-0.6) 10^3/ul Absolute Basos (auto) 0.1 (0-0.2) 10^3/ul Absolute Nucleated RBC 0 10^3/ul Nucleated RBC % 0 INR (Anticoag Therapy) (0.77-1.02) APTT (26.0-36.3) seconds Sodium (139-145) mmol/L Potassium (3.5-5.0) mmol/L Chloride (101-111) mmol/L Carbon Dioxide (22-32) mmol/L Anion Gap (2-11) mmol/L BUN (6-24) mg/dL Creatinine (0.67-1.17) mg/dL Est GFR ( Amer) (>60) Est GFR (Non-Af Amer) (>60) BUN/Creatinine Ratio (8-20) Glucose (70-100) mg/dL Lactic Acid 1.0 (0.5-2.0) mmol/L Calcium (8.6-10.3) mg/dL Total Bilirubin (0.2-1.0) mg/dL AST (13-39) U/L ALT (7-52) U/L Alkaline Phosphatase (34-104) U/L Troponin I (<0.04) ng/mL B-Natriuretic Peptide 82 ( - 100) pg/mL Total Protein (6.4-8.9) g/dL Albumin (3.2-5.2) g/dL Globulin (2-4) g/dL Albumin/Globulin Ratio (1-3) Urine Color Urine Appearance Urine pH (5-9) Ur Specific [place] (1.010-1.030) Urine Protein (Negative) Urine Ketones (Negative) Urine Blood (Negative) Urine Nitrate (Negative) Urine Bilirubin (Negative) Urine Urobilinogen (Negative) Ur Leukocyte Esterase (Negative) Urine WBC (Auto) (Absent) Urine RBC (Auto) (Absent) Ur Squamous Epith Cells (Absent) Urine Bacteria (Absent) Urine Glucose (Negative) Influenza A (Rapid) (Negative) Influenza B (Rapid) (Negative) 11/10/17 Range/Units 22:14 WBC (3.5-10.8) 10^3/ul RBC (4.0-5.4) 10^6/ul Hgb (14.0-18.0) g/dl Hct (42-52) % MCV (80-94) fL MCH (27-31) pg MCHC (31-36) g/dl RDW (10.5-15) % Plt Count (150-450) 10^3/ul MPV (7.4-10.4) um3 Neut % (Auto) (38-83) % Lymph % (Auto) (25-47) % [place] % (Auto) (0-7) % Eos % (Auto) (0-6) % Baso % (Auto) (0-2) % Absolute Neuts (auto) (1.5-7.7) 10^3/ul Absolute Lymphs (auto) (1.0-4.8) 10^3/ul Absolute Monos (auto) (0-0.8) 10^3/ul Absolute Eos (auto) (0-0.6) 10^3/ul Absolute Basos (auto) (0-0.2) 10^3/ul Absolute Nucleated RBC 10^3/ul Nucleated RBC % INR (Anticoag Therapy) 1.26 H (0.77-1.02) APTT 30.2 (26.0-36.3) seconds Sodium (139-145) mmol/L Potassium (3.5-5.0) mmol/L Chloride (101-111) mmol/L Carbon Dioxide (22-32) mmol/L Anion Gap (2-11) mmol/L BUN (6-24) mg/dL Creatinine (0.67-1.17) mg/dL Est GFR ( Amer) (>60) Est GFR (Non-Af Amer) (>60) BUN/Creatinine Ratio (8-20) Glucose (70-100) mg/dL Lactic Acid (0.5-2.0) mmol/L Calcium (8.6-10.3) mg/dL Total Bilirubin (0.2-1.0) mg/dL AST (13-39) U/L ALT (7-52) U/L Alkaline Phosphatase (34-104) U/L Troponin I (<0.04) ng/mL B-Natriuretic Peptide ( - 100) pg/mL Total Protein (6.4-8.9) g/dL Albumin (3.2-5.2) g/dL Globulin (2-4) g/dL Albumin/Globulin Ratio (1-3) Urine Color Urine Appearance Urine pH (5-9) Ur Specific [place] (1.010-1.030) Urine Protein (Negative) Urine Ketones (Negative) Urine Blood (Negative) Urine Nitrate (Negative) Urine Bilirubin (Negative) Urine Urobilinogen (Negative) Ur Leukocyte Esterase (Negative) Urine WBC (Auto) (Absent) Urine RBC (Auto) (Absent) Ur Squamous Epith Cells (Absent) Urine Bacteria (Absent) Urine Glucose (Negative) Influenza A (Rapid) (Negative) Influenza B (Rapid) (Negative) Diagnostic Imaging: Patient Name: ERIN WINCHESTER Medical Record#: [id number] Ordering Physician: Antoni Mooney MD Acct.#: [id number] : 1935 Age: 82 Sex: M Location: EMERGENCY DEPARTMENT Exam Date: 11/10/172012 ADM Status: REG ER Order Information: CHEST PA & LAT 2 VWS Accession Number: [id number] CPT: 74329 INDICATION: Cough. Recent bronchitis. Cardiac disease. IMPRESSION: RIGHT lung inflammatory infiltrates new compared with the September 08, 2017 exam. Radiographic follow-up after therapy warranted to assess for resolution. EKG Data: EKG INTERPRETATION ECG Report Patient Name ERIN WINCHESTER Birthdate 1935 Sex M Order Number [id number] Date of ECG 11/10/2017 21:31:48 Interpretation Sinus rhythm.normal P axis, V-rate 60- 99 Left atrial enlargement.P, P'>60mS, <-0.15mV V1 - ABNORMAL ECG - ECG NEEDS E-SIGNING Assess/Plan/Problems-Billing Assessment: An 82 y/o male with hx HTN, HLD, GERD and Petersen's esophagus, who presented to ED with persistent productive cough, fever and chills with CXR revealing Right Middle Lobe pneumonia that failed outpatient treatment. - Patient Problems (1) Sepsis Current Visit: Yes Status: Acute Priority: High Comment: - Patient meets sepsis criteria with HR>90 and leukocytosis >12,000 - IVF and IV antibiotics - Blood and sputum cultures pending - Urine Legionella and S. pneumo negative - Anti-tussive and supportive care - Supplemental oxygen (2) Pneumonia Current Visit: Yes Status: Acute Priority: High Comment: - Continue IV Rocephen and Azithromucin - Repeat CXR in AM - Clinically improving - Added Mucinex (3) HTN (hypertension) Current Visit: No Status: Chronic Comment: - Controlled - Hold HCTZ for now (4) GERD (gastroesophageal reflux disease) Current Visit: No Status: Chronic Comment: - Continue PO Omeprazole (5) Hyperlipidemia Current Visit: No Status: Acute Comment: - Resume simvastatin (6) BPH (benign prostatic hyperplasia) Current Visit: Yes Status: Acute Comment: - Continue Tamsulosin (7) Hypokalemia Current Visit: No Status: Acute Comment: - stable - replete as needed, check BMP in AM (8) DVT prophylaxis Current Visit: No Status: Acute Comment: - Heparin SQ (9) Full code status Current Visit: Yes Status: Acute Status and Disposition: Inpatient for treatment of CAP. Anticipate discharge to home when medically stable.
[2017-11-11] MEDS: Atorvastatin* 20 MG TAB PO SCH (17:34)
[2017-11-11] MEDS: Azithromycin IV(*) 500 MG in NS 0.9% 250 ML* 250 ML IVPB SCH (20:05)
[2017-11-11] MEDS: guaiFENesin ER TAB 600 MG PO SCH (20:11)
[2017-11-11] MEDS: Acetaminophen TAB* 325 MG PO PRN (20:11)
[2017-11-11] MEDS ORDERED: Benzocaine/Menthol LOZ* 1 LOZENGE MT PRN (21:07)
[2017-11-11] MEDS: cefTRIAXone VIAL(*) 1,000 MG in NS 0.9% 50 ML* 50 ML IVPB SCH (21:16)
[2017-11-12] MEDS: Acetaminoph/Cod 120/12 mg LIQ* 5 ML UDC PO PRN (05:54)
[2017-11-12] MEDS: Heparin VIAL(*) 5000 UNITS/ML VIAL (FIVE THOUSAND) SUBCUT SCH ×3 (05:54→21:15)
[2017-11-12] MEDS: Omeprazole CAP* 20 MG PO SCH (05:55)
[2017-11-12 06:58] LABS: ABS Basophils 0.1 10^3/ul (0-0.2); ABS Eosinophils 0.2 10^3/ul (0-0.6); ABS Lymphocytes 1.7 10^3/ul (1.0-4.8); ABS Nucleated RBC 0 10^3/ul; Eosinophil % 1.6 % (0-6); Hematocrit 36 % (42-52); Hemoglobin 12.6 g/dl (14.0-18.0); Lymphocyte % 17.3 % (25-47); Mean Corpuscular HGB Conc 35 g/dl (31-36); Mean Corpuscular Hemoglobin 32 pg (27-31); Mean Corpuscular Volume 90 fL (80-94); Nucleated Red Blood Cells % 0; Platelet Count 244 10^3/ul (150-450); Red Cell Distribution Width 14 % (10.5-15); White Blood Count 9.9 10^3/ul (3.5-10.8)
[2017-11-12] MEDS: Docusate CAP* 100 MG PO SCH ×2 (08:12→19:25)
[2017-11-12] MEDS: guaiFENesin ER TAB 600 MG PO SCH ×2 (08:12→21:15)
[2017-11-12] MEDS: Tamsulosin CAP* 0.4 MG PO SCH (08:12)
[2017-11-12] MEDS: Aspirin 81 mg CHEW TAB* 81 MG TAB.CHEW PO SCH (08:12)
--- NOTE | 2017-11-12 09:06 | RAD ---
Indication: Follow-up pneumonia. Single frontal view of the chest performed at 0710 hours was reviewed. Comparison is made with previous exam dated November 10, 2017. No mediastinal shift is noted. Heart is of normal size and configuration. Right upper lobe wedge-shaped density consistent with pneumonia has progressed since previous exam.. IMPRESSION: PROGRESSIVE RIGHT UPPER LOBE PNEUMONIA.
[2017-11-12] MEDS: Acetaminophen TAB* 325 MG PO PRN (14:13)
--- NOTE | 2017-11-12 15:52 | PN ---
Subjective Date of Service: 11/12/17 Interval History: Mr. Winchester continues to improve daily. He still has some productive cough, but getting better. Denies wheezing or SOB. Fever 100.6 last evening, resolved, no chills. He is eating well, wonder if he can go home today. Family History: Unchanged from Admission Social History: Unchanged from Admission Past Medical History: Unchanged from Admission Objective Active Medications: Acetaminophen (Tylenol Tab*) 650 mg PO Q6H PRN PRN Reason: FEVER/PAIN Last Admin: 11/12/17 14:13 Dose: 650 mg Acetaminophen/Codeine Phosphate (Tylenol/Codeine 120/12 Liq*) 5 ml PO Q6H PRN PRN Reason: cough Last Admin: 11/12/17 05:54 Dose: 5 ml Albuterol (Ventolin 2.5 Mg/3 Ml Neb.Fartun*) 2.5 mg INH Q2H PRN PRN Reason: SOB/WHEEZING Aspirin (Aspirin 81 Mg Chew Tab*) 81 mg PO DAILY [facility] Last Admin: 11/12/17 08:12 Dose: 81 mg Atorvastatin Calcium (Lipitor*) 20 mg PO 1700 [facility] Last Admin: 11/11/17 17:34 Dose: 20 mg Benzonatate (Tessalon Cap*) 200 mg PO TID PRN PRN Reason: cough Last Admin: 11/11/17 18:46 Dose: 200 mg Docusate Sodium (Colace Cap*) 200 mg PO BID [facility] Last Admin: 11/12/17 08:12 Dose: Not Given Guaifenesin (Mucinex*) 600 mg PO BID [facility] Last Admin: 11/12/17 08:12 Dose: 600 mg Heparin Sodium (Porcine) (Heparin Vial(*)) 5,000 units SUBCUT Q8HR [facility] Last Admin: 11/12/17 14:09 Dose: 5,000 units Ceftriaxone Sodium 1,000 mg/ (Sodium Chloride) 50 mls @ 200 mls/hr IVPB Q24H [facility] Last Admin: 11/11/17 21:16 Dose: 200 mls/hr Azithromycin 500 mg/ Sodium (Chloride) 250 mls @ 250 mls/hr IVPB Q24H [facility] Last Admin: 11/11/17 20:05 Dose: 250 mls/hr Melatonin (Melatonin (Nf)) 3 mg PO BEDTIME PRN; Protocol PRN Reason: Sleep Omeprazole (Prilosec Cap*) 20 mg PO DAILY@0600 [facility] Last Admin: 11/12/17 05:55 Dose: 20 mg Ondansetron HCl (Zofran Odt Tab*) 4 mg PO Q6H PRN PRN Reason: NAUSEA/VOMITING Tamsulosin HCl (Flomax Cap*) 0.4 mg PO DAILY [facility] Last Admin: 11/12/17 08:12 Dose: 0.4 mg Throat Lozenges (Chloraseptic Manav*) 1 manav MT Q6H PRN PRN Reason: SORE THROAT Vital Signs - 8 hr 11/12/17 11/12/17 11/12/17 07:48 08:00 08:09 Temperature Pulse Rate 77 Respiratory 19 20 18 Rate Blood Pressure (mmHg) O2 Sat by Pulse 91 Oximetry 11/12/17 11/12/17 11/12/17 11:32 14:12 15:32 Temperature 98.6 F 101.0 F 101.8 F Pulse Rate 73 86 Respiratory 23 20 Rate Blood Pressure 125/48 122/53 (mmHg) O2 Sat by Pulse 100 92 Oximetry Oxygen Devices in Use Now: None Appearance: Sitting in bed, finished his breakfast, appears comfortable and in NAD Eyes: No Scleral Icterus, PERRLA Ears/Nose/Mouth/Throat: Clear Oropharnyx, Mucous Membranes Moist Neck: Trachea Midline, No Thyroid Enlargement, Masses Respiratory: Symmetrical Chest Expansion and Respiratory Effort, Clear to Auscultation - minimal crackles to R base, no wheezes or rhonchi Cardiovascular: NL Sounds; No Murmurs; No JVD, RRR Abdominal: NL Sounds; No Tenderness; No Distention Lymphatic: No Cervical Adenopathy Extremities: No Edema Skin: No Rash or Ulcers Neurological: Alert and Oriented x 3, NL Sensation, NL Muscle Strength and Tone Result Diagrams: 11/12/17 06:38 11/12/17 06:38 Additional Lab and Data: Lab Results 11/10/17 11/10/17 11/10/17 Range/Units 20:12 21:21 22:13 WBC (3.5-10.8) 10^3/ul RBC (4.0-5.4) 10^6/ul Hgb (14.0-18.0) g/dl Hct (42-52) % MCV (80-94) fL MCH (27-31) pg MCHC (31-36) g/dl RDW (10.5-15) % Plt Count (150-450) 10^3/ul MPV (7.4-10.4) um3 Neut % (Auto) (38-83) % Lymph % (Auto) (25-47) % [place] % (Auto) (0-7) % Eos % (Auto) (0-6) % Baso % (Auto) (0-2) % Absolute Neuts (auto) (1.5-7.7) 10^3/ul Absolute Lymphs (auto) (1.0-4.8) 10^3/ul Absolute Monos (auto) (0-0.8) 10^3/ul Absolute Eos (auto) (0-0.6) 10^3/ul Absolute Basos (auto) (0-0.2) 10^3/ul Absolute Nucleated RBC 10^3/ul Nucleated RBC % INR (Anticoag Therapy) (0.77-1.02) APTT (26.0-36.3) seconds Sodium 132 L (139-145) mmol/L Potassium 3.8 (3.5-5.0) mmol/L Chloride 96 L (101-111) mmol/L Carbon Dioxide 27 (22-32) mmol/L Anion Gap 9 (2-11) mmol/L BUN 18 (6-24) mg/dL Creatinine 1.09 (0.67-1.17) mg/dL Est GFR ( Amer) 83.5 (>60) Est GFR (Non-Af Amer) 64.9 (>60) BUN/Creatinine Ratio 16.5 (8-20) Glucose 120 H (70-100) mg/dL Lactic Acid (0.5-2.0) mmol/L Calcium 9.3 (8.6-10.3) mg/dL Total Bilirubin 1.00 (0.2-1.0) mg/dL AST 20 (13-39) U/L ALT 11 (7-52) U/L Alkaline Phosphatase 44 (34-104) U/L Troponin I 0.01 (<0.04) ng/mL B-Natriuretic Peptide ( - 100) pg/mL Total Protein 7.4 (6.4-8.9) g/dL Albumin 3.9 (3.2-5.2) g/dL Globulin 3.5 (2-4) g/dL Albumin/Globulin Ratio 1.1 (1-3) Urine Color Yellow Urine Appearance Clear Urine pH 6.0 (5-9) Ur Specific [place] 1.023 (1.010-1.030) Urine Protein Negative (Negative) Urine Ketones 1+ A (Negative) Urine Blood 1+ A (Negative) Urine Nitrate Negative (Negative) Urine Bilirubin Negative (Negative) Urine Urobilinogen Positive A (Negative) Ur Leukocyte Esterase Negative (Negative) Urine WBC (Auto) Trace(0-5/hpf) (Absent) Urine RBC (Auto) 2+(6-10/hpf) A (Absent) Ur Squamous Epith Cells Present A (Absent) Urine Bacteria Absent (Absent) Urine Glucose Negative (Negative) Influenza A (Rapid) Negative (Negative) Influenza B (Rapid) Negative (Negative) 11/10/17 11/10/17 11/10/17 Range/Units 22:13 22:13 22:14 WBC 15.3 H (3.5-10.8) 10^3/ul RBC 4.47 (4.0-5.4) 10^6/ul Hgb 13.8 L (14.0-18.0) g/dl Hct 41 L (42-52) % MCV 91 (80-94) fL MCH 31 (27-31) pg MCHC 34 (31-36) g/dl RDW 14 (10.5-15) % Plt Count 246 (150-450) 10^3/ul MPV 6.8 L (7.4-10.4) um3 Neut % (Auto) 82.8 (38-83) % Lymph % (Auto) 9.5 L (25-47) % [place] % (Auto) 7.1 H (0-7) % Eos % (Auto) 0.1 (0-6) % Baso % (Auto) 0.5 (0-2) % Absolute Neuts (auto) 12.7 H (1.5-7.7) 10^3/ul Absolute Lymphs (auto) 1.5 (1.0-4.8) 10^3/ul Absolute Monos (auto) 1.1 H (0-0.8) 10^3/ul Absolute Eos (auto) 0 (0-0.6) 10^3/ul Absolute Basos (auto) 0.1 (0-0.2) 10^3/ul Absolute Nucleated RBC 0 10^3/ul Nucleated RBC % 0 INR (Anticoag Therapy) (0.77-1.02) APTT (26.0-36.3) seconds Sodium (139-145) mmol/L Potassium (3.5-5.0) mmol/L Chloride (101-111) mmol/L Carbon Dioxide (22-32) mmol/L Anion Gap (2-11) mmol/L BUN (6-24) mg/dL Creatinine (0.67-1.17) mg/dL Est GFR ( Amer) (>60) Est GFR (Non-Af Amer) (>60) BUN/Creatinine Ratio (8-20) Glucose (70-100) mg/dL Lactic Acid 1.0 (0.5-2.0) mmol/L Calcium (8.6-10.3) mg/dL Total Bilirubin (0.2-1.0) mg/dL AST (13-39) U/L ALT (7-52) U/L Alkaline Phosphatase (34-104) U/L Troponin I (<0.04) ng/mL B-Natriuretic Peptide 82 ( - 100) pg/mL Total Protein (6.4-8.9) g/dL Albumin (3.2-5.2) g/dL Globulin (2-4) g/dL Albumin/Globulin Ratio (1-3) Urine Color Urine Appearance Urine pH (5-9) Ur Specific [place] (1.010-1.030) Urine Protein (Negative) Urine Ketones (Negative) Urine Blood (Negative) Urine Nitrate (Negative) Urine Bilirubin (Negative) Urine Urobilinogen (Negative) Ur Leukocyte Esterase (Negative) Urine WBC (Auto) (Absent) Urine RBC (Auto) (Absent) Ur Squamous Epith Cells (Absent) Urine Bacteria (Absent) Urine Glucose (Negative) Influenza A (Rapid) (Negative) Influenza B (Rapid) (Negative) 11/10/17 Range/Units 22:14 WBC (3.5-10.8) 10^3/ul RBC (4.0-5.4) 10^6/ul Hgb (14.0-18.0) g/dl Hct (42-52) % MCV (80-94) fL MCH (27-31) pg MCHC (31-36) g/dl RDW (10.5-15) % Plt Count (150-450) 10^3/ul MPV (7.4-10.4) um3 Neut % (Auto) (38-83) % Lymph % (Auto) (25-47) % [place] % (Auto) (0-7) % Eos % (Auto) (0-6) % Baso % (Auto) (0-2) % Absolute Neuts (auto) (1.5-7.7) 10^3/ul Absolute Lymphs (auto) (1.0-4.8) 10^3/ul Absolute Monos (auto) (0-0.8) 10^3/ul Absolute Eos (auto) (0-0.6) 10^3/ul Absolute Basos (auto) (0-0.2) 10^3/ul Absolute Nucleated RBC 10^3/ul Nucleated RBC % INR (Anticoag Therapy) 1.26 H (0.77-1.02) APTT 30.2 (26.0-36.3) seconds Sodium (139-145) mmol/L Potassium (3.5-5.0) mmol/L Chloride (101-111) mmol/L Carbon Dioxide (22-32) mmol/L Anion Gap (2-11) mmol/L BUN (6-24) mg/dL Creatinine (0.67-1.17) mg/dL Est GFR ( Amer) (>60) Est GFR (Non-Af Amer) (>60) BUN/Creatinine Ratio (8-20) Glucose (70-100) mg/dL Lactic Acid (0.5-2.0) mmol/L Calcium (8.6-10.3) mg/dL Total Bilirubin (0.2-1.0) mg/dL AST (13-39) U/L ALT (7-52) U/L Alkaline Phosphatase (34-104) U/L Troponin I (<0.04) ng/mL B-Natriuretic Peptide ( - 100) pg/mL Total Protein (6.4-8.9) g/dL Albumin (3.2-5.2) g/dL Globulin (2-4) g/dL Albumin/Globulin Ratio (1-3) Urine Color Urine Appearance Urine pH (5-9) Ur Specific [place] (1.010-1.030) Urine Protein (Negative) Urine Ketones (Negative) Urine Blood (Negative) Urine Nitrate (Negative) Urine Bilirubin (Negative) Urine Urobilinogen (Negative) Ur Leukocyte Esterase (Negative) Urine WBC (Auto) (Absent) Urine RBC (Auto) (Absent) Ur Squamous Epith Cells (Absent) Urine Bacteria (Absent) Urine Glucose (Negative) Influenza A (Rapid) (Negative) Influenza B (Rapid) (Negative) Diagnostic Imaging: Patient Name: ERIN WINCHESTER Medical Record#: [id number] Ordering Physician: Brooklyn IRWIN Acct.#: [id number] : 1935 Age: 82 Sex: M Location: [address] [place] [address] - MEDICAL Exam Date: 11/12/17799 ADM Status: ADM IN Order Information: CHEST AP PORTABLE Accession Number: [id number] CPT: 07971 Indication: Follow-up pneumonia. Single frontal view of the chest performed at 0710 hours was reviewed. Comparison is made with previous exam dated November 10, 2017. No mediastinal shift is noted. Heart is of normal size and configuration. Right upper lobe wedge-shaped density consistent with pneumonia has progressed since previous exam.. IMPRESSION: PROGRESSIVE RIGHT UPPER LOBE PNEUMONIA. <Electronically signed by Yulisa Leung MD in [place]> 11/12/17902 Dictated By: Yulisa Leung MD Dictated Date/Time: 11/12/17902 Transcribed Date/Time: 11/12/17899 EKG Data: . Assess/Plan/Problems-Billing Assessment: An 82 y/o male with hx HTN, HLD, GERD and Petersen's esophagus, who presented to ED with persistent productive cough, fever and chills with CXR revealing Right Middle Lobe pneumonia that failed outpatient treatment. - Patient Problems (1) Sepsis Current Visit: Yes Status: Acute Priority: High Comment: - Patient meets sepsis criteria with HR>90 and leukocytosis >12,000 - IVF and IV antibiotics - Blood and sputum cultures pending - Urine Legionella and S. pneumo negative - Anti-tussive and supportive care - Supplemental oxygen (2) Pneumonia Current Visit: Yes Status: Acute Priority: High Comment: - Continue IV Rocephen and Azithromucin - Repeat CXR with progressive pneumonia despite clinical improvement - No fever today, if remains aferile until tomorrow, then will likely discharge to home on PO antibiotics. (3) HTN (hypertension) Current Visit: No Status: Chronic Comment: - Controlled - Hold HCTZ for now (4) GERD (gastroesophageal reflux disease) Current Visit: No Status: Chronic Comment: - Continue PO Omeprazole (5) Hyperlipidemia Current Visit: No Status: Acute Comment: - Resume simvastatin (6) BPH (benign prostatic hyperplasia) Current Visit: Yes Status: Acute Comment: - Continue Tamsulosin (7) Hypokalemia Current Visit: No Status: Acute Comment: - stable - replete as needed, check BMP in AM (8) DVT prophylaxis Current Visit: No Status: Acute Comment: - Heparin SQ (9) Full code status Current Visit: Yes Status: Acute Status and Disposition: Inpatient for treatment of CAP. Anticipate discharge to home when medically stable.
[2017-11-12] MEDS: Atorvastatin* 20 MG TAB PO SCH (17:05)
[2017-11-12] MEDS: Azithromycin IV(*) 500 MG in NS 0.9% 250 ML* 250 ML IVPB SCH (19:29)
[2017-11-12] MEDS: cefTRIAXone VIAL(*) 1,000 MG in NS 0.9% 50 ML* 50 ML IVPB SCH (21:15)
[2017-11-13] MEDS: Omeprazole CAP* 20 MG PO SCH (05:13)
[2017-11-13] MEDS: Heparin VIAL(*) 5000 UNITS/ML VIAL (FIVE THOUSAND) SUBCUT SCH (05:14)
[2017-11-13 08:05] VITALS: BP 105/51
[2017-11-13] MEDS: Docusate CAP* 100 MG PO SCH (08:19)
[2017-11-13] MEDS: guaiFENesin ER TAB 600 MG PO SCH (08:26)
[2017-11-13] MEDS: Aspirin 81 mg CHEW TAB* 81 MG TAB.CHEW PO SCH (08:26)
[2017-11-13] MEDS: Tamsulosin CAP* 0.4 MG PO SCH (08:26)
--- NOTE | 2017-11-13 22:36 | DS ---
CC: Dr. Jose Crouch * DISCHARGE SUMMARY: DATE OF ADMISSION: 11/11/17 DATE OF DISCHARGE: 11/13/17 ADMITTING HOSPITALIST: Dr. Oswald Mcdowell. ATTENDING HOSPITALIST WHILE PATIENT HERE: Dr. Josesito Bauer.* (DICTATED BY DC ABDUL) ADMISSION DIAGNOSES: 1. Productive cough. 2. Fever and chills. 3. Hypertension. 4. Hyperlipidemia. 5. Gastroesophageal reflux disease. 6. Petersen's esophagus. 7. Benign prostatic hypertrophy. DISCHARGE DIAGNOSES: 1. Productive cough. 2. Fever and chills. 3. Hypertension. 4. Hyperlipidemia. 5. Gastroesophageal reflux disease. 6. Petersen esophagus. 7. Benign prostatic hypertrophy. 8. Community-acquired pneumonia. CONSULTATIONS: None. PROCEDURES: None. BRIEF MEDICAL HISTORY: Mr. Hill is a pleasant 82-year-old gentleman who garcia in [place] and reports having an episode of productive cough for which he was diagnosed with bronchitis back in August of this year. He was treated with some antibiotics that he could not recall its name. He reports that his symptoms eventually subsided; however, he continued to have some lingering cough for the past couple of months. Unfortunately, his has unexpectedly from an [place] while he was finishing his winter vacation in [place]. He returned to the area in the spring where he stopped at an urgent care and was diagnosed with pneumonia for which he was started on another course of antibiotic for the past 2 weeks. He again was uncertain about the name of the antibiotics. He continued to have prominent cough despite 2 failed courses of treatment. He noticed intermittent fever and chills as well as chest discomfort that occurs only when he coughs for which he presented to the emergency room for further evaluation. The patient had a laboratory workup that revealed leukocytosis with a white count of 15,000, and had a chest x-ray that was consistent with right middle lobe pneumonia for which we were asked to see the patient for admission. HOSPITAL COURSE: The patient was seen in the ED and evaluated and was eventually admitted to the hospitalist service on 11/11/2017. He was started on intravenous antibiotic as well as IV hydration, and continued all his medication for blood pressure, hyperlipidemia, and acid reflux disease. He met the criteria for sepsis with tachycardia and heart rate more than 90 as well as leukocytosis with white count greater than 12,000 secondary to right middle lobe pneumonia. His blood and sputum culture were taken. He had his urine checked for legionella and strep pneumo antigen that came back negative. He also was checked for influenza A and B with negative titers. He had some supportive care as well as supplemental oxygen and antitussives. He was reevaluated on the following morning and noted have significant improvement of his symptoms. He continued to have some cough, remained afebrile overnight. Later that day, he developed a low-grade fever, but he was telling me that he had too many covers around his body while asleep and they took his temperature right immediately when he got up; however, his temperature returned back to normal level an hour later. The patient was ambulatory out of bed. He had good appetite and he denied any significant shortness of breath or chest discomfort. He continued hospitalization for another day where he noted to be afebrile with no further complaints of cough or shortness of breath. On the discharge morning, his exam was essentially unremarkable. He had regular rate and rhythm to a heartbeat. His lungs were clear to auscultation bilaterally. There was only minimal bibasilar crackles noted. He had no chest retraction or accessory muscle use. His ENT exam showed moist mucous membranes. There was no evidence of exudate. His extremities were showing no edema. The patient was stable and has been afebrile for the past 48 hours. We planned for him to be discharged to home today and he will follow up with his primary care physician next week for reevaluation. DISCHARGE MEDICATIONS: His discharge medications include: 1. Aspirin 81 mg p.o. daily. 2. Tessalon drops 100 mg caps 2 caps p.o. t.i.d. 3. Nexium 20 mg p.o. b.i.d. 4. Flomax 0.4 mg p.o. daily. 5. Multivitamin 1 cap p.o. daily. 6. Mucinex 600 mg p.o. b.i.d. 7. Hydrochlorothiazide 25 mg p.o. daily. 8. Levaquin 500 mg p.o. daily. 9. Antivert 12.5 mg 2 tablets p.o. t.i.d. as needed for dizziness. 10. Zocor 40 mg p.o. nightly. 11. Ambien 5 mg p.o. nightly p.r.n. for insomnia. PROBLEM LIST: 1. Sepsis secondary to persistent community-acquired pneumonia. The patient met criteria with leukocytosis and tachycardia that eventually resolved with hospitalization and administration of IV antibiotics. 2. Hypertension, stable and the patient will continue his medications at home. 3. Hyperlipidemia. Will continue his medicine at home. 4. Gastroesophageal reflux disease and history of Petersen's esophagus. He will continue proton pump inhibitor at home. The patient was discharged on oral quinolones for a period of 10 days and will be seen by primary care physician for a followup. DC ABDUL [id number]/[facility] #: [id number] [place]
== END 2017-11-13 10:10 | disposition home or self-care (01) | DRG 720 ==
LOC: ED 19:55 → MED 11-11 01:36
PROVIDERS: ADMIT Hospitalist; ATTEND Internal Medicine
DX: A41.9 Sepsis, unspecified organism (principal); J18.8 Other pneumonia, unspecified organism; I10 Essential (primary) hypertension; E78.5 Hyperlipidemia, unspecified; K21.9 Gastro-esophageal reflux disease without esophagitis; K22.70 Barrett's esophagus without dysplasia; N40.0 Benign prostatic hyperplasia without lower urinary tract symptoms; E87.6 Hypokalemia; Z79.82 Long term (current) use of aspirin; Z79.899 Other long term (current) drug therapy; Z87.891 Personal history of nicotine dependence
CPT/HCPCS: 36415; 71045; 71046; 80048; 80053; 81003; 81015; 83605; 83880; 84484; 85025; 85610; 85730; 87040; 87086; 87502; 87899; 93005; 99284; A9270-GY; J0456; J0696; J1644

== ENCOUNTER 2019-07-30 15:07 | Observation (INO) | payer BC, MEDICARE ==
--- OUTSIDE RECORDS SUMMARY | 2019-07-30 15:39 | XMS REPORT | Continuity of Care Document ---
:1935 External Reference #:[id number] Author Name Marsha Ryan NP (transmitted by agent of provider Spring James) Address [address], [address] [place] [id number] Care Team Providers Name Role Phone Ellis Vela MD - Gastroenterology Care Team Information Mill Stenciler Bethel Sol III, MD - Internal Care Team Information Mill Stenciler Medicine Jak Maynard MD - Care Team Information Mill Stenciler [phone] Otolaryngology Problems Active Problems Provider Date Coronary arteriosclerosis Jose Crouch M.D.,FACP Onset: 10/10/2007 Note: stent 1999 Pure hypercholesterolemia Jose Crouch M.D.,FACP Onset: 10/10/2007 Petersen's esophagus Jose Crouch M.D.,FACP Onset: 10/10/2007 Impaired fasting glycaemia Jose Crouch M.D.,FACP Onset: 04/09/2011 Exudative age-related macular Jose Crouch M.D.,FACP Onset: 01/10/2015 degeneration Insomnia Familia Patterson NP Onset: 01/14/2015 Benign prostatic hypertrophy with Jose Crouch M.D.,FACP Onset: 2015 outflow obstruction Cervical spondylosis Mango De Los Santos MD Onset: 11/15/2017 Social History Type Date Description Comments Sex Unknown Cigarette Use Quit 26 Years Ago ETOH Use 10/31/2017 Drinks Alcoholic Beverages Rarely Recreational Drug Use Denies Drug Use Tobacco Use Start: Unknown End: Patient is a former smoked for 28 Unknown smoker years, quit in 1981 Smoking Status Reviewed: 06/21/19 Patient is a former smoked for 28 smoker years, quit in 1981 Exercise Type/Frequency Exercises regularly gym daily while in [place], [place] [employer] work Allergies, Adverse Reactions, Alerts Active Allergies Reaction Severity Comments Date Lipitor muscle pain 05/19/2013 Cipro sensitvity-some tongue swelling 04/10/2015 Inactive Allergies NKDA 12/13/2007 Medications Active Medications SIG Qnty Indications Ordering Date Provider Prednisone 6 tabs by mouth 150tabs J84.116 Lorenza Patton, 05/22/2019 5mg Tablets daily for 7 days, 5 tabs daily for 1 week, 4 tabs for 1 week, 3 tabs for 1 week, 2 tabs for 1 week, 1 tab daily for 2 weeks Flovent HFA 2 puffs twice 12gm R05 Bret Lemus NP 04/18/2019 110mcg/Act daily, rinse Aerosol mouth after use. Fluticasone 2 sprays each 16gm J30.89 Bret Lemus NP 02/08/2019 Propionate nostril qd. 50mcg/Act Suspension Shingrix 0.5ml 2units Bret Lemus NP 02/08/2019 50mcg/0.5ML intramuscular, Suspension Rec repeat 2-6 months later Aerochamber Plus use with inhaler 1units J41.0 Kell Cabral MD 08/21/2018 Misc as directed Loratadine one po daily 30tabs R05 Kell Cabral MD 07/24/2018 10mg Tablets Furosemide 1 by mouth every 90tabs Bethel Stoddard 02/01/2018 20mg Tablets day Hiral Sol Aspir-81 1 by mouth every 30tabs Jose Esquivel 10/31/2017 81mg Tablets day Hiral Crouch,FACP Rosuvastatin Calcium take 1 tablet by 90tabs I25.10 Bethel Stoddard 07/26/2016 mouth every Hiral Sol 10mg Tablets evening Tamsulosin HCL 1 by mouth every 90caps N40.1 Bethel Stoddard 04/29/2016 0.4mg day Hiral Sol Capsules Glucosamine & 1 tab bid Jose Esquivel 04/30/2013 Chrondroiaudrey Crouch M.D.,FACP [id number] Packet Nitro-bid to toes bid prn 30g Jose Esquivel 07/31/2012 2% Ointment Hiral Crouch,FACTomy Meclizine HCL 1/2-1 by mouth 30tabs Bethel E. 01/29/2009 25mg three times a day Hiral Sol Tablets as needed Ambien 1 by mouth every 30tabs Bret Lemus NP 03/29/2008 5mg Tablets night at bedtime as needed insomnia Esomeprazole 1 by mouth bid 180caps Bethel E. Magnesium Hiral Sol 20mg Capsules DR Fitzgerald Areds 2 2 by mouth daily Unknown Areds 2 Capsules History Medications Clotrimazole dissolve into 70units B37.0 Bret Lemus NP 04/05/2019 - 10mg mouth slowly 5 04/12/2019 Maddy times a day x 2 weeks Amoxicillin/Clavulana take one tablet 20tabs J01.90 Bret Lemus NP 2018 - te Potassium q12 hours for 10 04/17/2019 875-125mg days Tablets Medications Administered in Office Medication SIG Qnty Indications Ordering Provider Date [facility] pharmacy administered Unknown 04/22/2019 Injection Immunizations CPT Code Status Date Vaccine Lot # [id number] Given 03/22/2019 Tdap - Tetanus/Diptheria/Acellular Pertussis 14310 Given 03/22/2019 Influenza Virus Vaccine, Quadrivalent, Split, Preservative Free [id number] Given 03/11/2016 Fluzone Vaccine 46750 Given 03/17/2015 Fluzone High Dose 13586 Given 01/10/2015 Pneumococcal Conjugate Vaccine 13 Valent For [id number] Intramuscular Use 69830 Given 04/03/2014 Fluzone High Dose 83461 Given 04/17/2013 Influenza Virus 3Yrs & Over 74947 Given 04/09/2011 Influenza Virus 3Yrs & Over 78934 Given 04/09/2011 Tdap - Tetanus/Diptheria/Acellular Pertussis [id number] 64287 Given 04/09/2011 Pneumonia Vaccine [id number] 93547 Given 05/08/2010 Influenza Virus 3Yrs & Over [id number] 36781 Given 05/06/2009 Influenza Virus Vaccine, Pandemic Formulation 35102 Given 05/06/2009 Influenza Virus Vaccine, Pandemic Formulation [id number] 47079 Given 05/06/2009 Administration Swine Flu Shot 11787 Given 04/21/2009 Influenza Virus 3Yrs & Over 92229 Given 04/21/2009 Influenza Virus 3Yrs & Over [id number] 70860 Given 11/22/2008 Zoster (Zostavax) [id number] 70263 Given 03/29/2008 Influenza Virus 3Yrs & Over 33910 Given 03/29/2008 Influenza Virus 3Yrs & Over [id number] Vital Signs Date Vital Result Comment 06/21/2019 7:38am Height 64 inches 5'4" Weight 184.00 lb Heart Rate 68 /min BP Systolic 112 mmHg BP Diastolic 60 mmHg O2 % BldC Oximetry 98 % BMI (Body Mass Index) 31.6 kg/m2 05/22/2019 11:05am Height 64 inches 5'4" Weight 188.00 lb Heart Rate 72 /min BP Systolic Sitting 140 mmHg BP Diastolic Sitting 80 mmHg O2 % BldC Oximetry 94 % BMI (Body Mass Index) 32.3 kg/m2 Results Test Acquired Facility Test Result H/L Range Note Date Laboratory 05/15/2019 [facility] Point of Care 72 mg/dL Normal 70-[address] [place] [address] [phone] Laboratory 02/08/2019 [facility] PSA Screening 0.559 Normal 0- 4.000 2 test finding ng/[place] [address] [phone] Lipid Profile 02/02/2019 [facility] Triglycerides 127 mg/dL 3, 4 (Trig/Chol/HDL [address] ) [place] [address] [phone] Cholesterol 184 mg/dL 5 HDL Cholesterol 49.1 mg/dL 6 LDL Cholesterol 110 mg/dL 7 Comp Metabolic 02/02/2019 [facility] Sodium 139 mmol/L Normal 135-[address] [place] [address] [phone] Potassium 4.2 mmol/L Normal 3.5-5.0 Chloride 102 mmol/L Normal 101-111 Co2 Carbon Dioxide 30 mmol/L Normal 22-32 Anion Gap 7 mmol/L Normal 2-11 Glucose 97 mg/dL Normal 70-100 Blood Urea Nitrogen 24 mg/dL Normal 6-24 Creatinine 1.13 mg/dL Normal 0.67-1.17 BUN/Creatinine Ratio 21.2 High 8-20 Calcium 9.7 mg/dL Normal 8.6-10.3 Total Protein 7.2 g/dL Normal 6.4-8.9 Albumin 4.4 g/dL Normal 3.2-5.2 Globulin 2.8 g/dL Normal 2-4 Albumin/Globulin Ratio 1.6 Normal 1-3 Total Bilirubin 0.70 mg/dL Normal 0.2-1.0 Alkaline Phosphatase 69 U/L Normal 34-104 Alt 13 U/L Normal 7-52 Ast 21 U/L Normal 13-39 Egfr Non- 62.1 >60 Egfr 75.2 >60 8 1 Edge Beader: [id number] 2 Serum levels of PSA measured using the Pinevent DXI Hybritech immunoassay should not be interpreted as absolute evidence of the presence or absence of disease. The PSA value should be used in conjunction with other pertinent clinical diagnostic procedures. A PSA value in the range of 0.1 to 0.6 ng/ml is indeterminate if being used as an indicator of recurrent or residual disease. The values obtained with different assay methods or kits cannot be used interchangeably. 3 FASTING 4 Desirable: <150 Borderline High: 150-199 High: 200-499 Very High: >500 5 Desirable: <200 Borderline High: 200-239 High: >239 6 Low: <40 Desirable: 40-60 High: >60 7 Desirable: <100 Near Optimal: 100-129 Borderline High: 130-159 High: 160-189 Very High: >189 8 Because ethnic data is not always readily available, this report includes an eGFR for both -Americans and non- Americans. The National Kidney Disease Education Program (NKDEP) does not endorse the use of the MDRD equation for patients that are not between the ages of 18 and 70, are , have extremes of body size, muscle mass, or nutritional status, or are non- or non-. According to the National Kidney Foundation, irrespective of diagnosis, the stage of the disease is based on the level of kidney function: Stage Description GFR(mL/min/1.73 m(2)) 1 Kidney damage with normal or decreased GFR 90 2 Kidney damage with mild decrease in GFR 60-89 3 Moderate decrease in GFR 30-59 4 Severe decrease in GFR 15-29 5 Kidney failure <15 (or dialysis) Procedures Date Code Description Status 01/11/2019 251211935 Diabetic Retinal Eye Exam Completed 06/26/2012 [id number] Colonoscopy Completed 02/10/2007 34676547 Colonoscopy Completed Medical Devices Description No Information Available Encounters Type Date Location Provider Dx Diagnosis Office Visit 05/22/2019 [facility] Lorenza Patton J84.116 Cryptogenic 11:30a [facility] Consultative Sales Associate pneumonia J98.4 Other disorders of lung J20.9 Acute bronchitis, unspecified Office Visit 05/10/2019 11:00a [facility] Lorenza R91.8 Other nonspecific [facility] Abdi abnormal finding Consultative Sales Associate of lung field Z87.891 Personal history of nicotine dependence Office Visit 04/18/2019 2:20p [facility] Internal Bret Allan, R[facility] Visit 04/05/2019 10:20a [facility] Internal Bret Allan, J01.90 Acute sinusitis, Medicine - [facility] HEAD WAITER/WAITRESS unspecified J20.9 Acute bronchitis, unspecified B37.0 Candidal stomatitis Office Visit 02/08/2019 11:00a [facility] Internal Bret Allan, HEAD WAITER/WAITRESS Z00.00 [facility]cntr for Medicine - [facility] general adult medical exam w/o abnormal findings I50.32 Chronic diastolic (congestive) heart failure I10 Essential (primary) hypertension E78.00 Pure hypercholesterolemia, unspecified I25.10 Athscl heart disease of [place] coronary artery w/o ang pctrs 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 dysplasia Z12.5 Encounter for screening for malignant neoplasm of prostate J30.89 Other allergic rhinitis Assessments Date Code Description Provider 06/21/2019 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 Marsha Ryan NP 06/21/2019 J98.4 Other disorders of lung Marsha Ryan NP 05/22/2019 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 Lorenza Patton MD 05/22/2019 J98.4 Other disorders of lung Lorenza Patton MD 05/22/2019 J20.9 Acute bronchitis, unspecified Lorenza Patton MD 05/10/2019 R91.8 Other nonspecific abnormal finding of lung Lorenza Patton MD field 05/10/2019 Z87.891 Personal history of nicotine dependence Lorenza Patton MD 04/18/2019 R05 Cough Bret Allan, HEAD WAITER/WAITRESS 04/05/2019 J01.90 Acute sinusitis, unspecified Bret Allan, HEAD WAITER/WAITRESS 04/05/2019 J20.9 Acute bronchitis, unspecified Bret Allan, HEAD WAITER/WAITRESS 04/05/2019 B37.0 Candidal stomatitis Bret Allan, HEAD WAITER/WAITRESS 02/08/2019 Z00.00 Encounter for general adult medical Bret Allan, HEAD WAITER/WAITRESS examination without abnormal findings 02/08/2019 I50.32 Chronic diastolic (congestive) heart Bret Allan, HEAD WAITER/WAITRESS failure 02/08/2019 I10 Essential (primary) hypertension Bret Allan, HEAD WAITER/WAITRESS 02/08/2019 E78.00 Pure hypercholesterolemia, unspecified Bret Allan, HEAD WAITER/WAITRESS 02/08/2019 I25.10 Atherosclerotic heart disease of [place] Bret Allan, HEAD WAITER/WAITRESS coronary artery with 02/08/2019 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 Bret Allan, HEAD WAITER/WAITRESS dysplasia 02/08/2019 Z12.5 Encounter for screening for malignant Bretbartolo Lemus HEAD WAITER/WAITRESS neoplasm of prostate 02/08/2019 J30.89 Other allergic rhinitis Bretbartolo Lemus NP Plan of Treatment Future Appointment(s):11/16/2019 8:00 am - Marsha Ryan NP at [facility]06/21/2019 - Marsha Ryan NP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Follow up:November (when pt returns from [place] for winter)Recommendations:Please call the office if you start to feel your symptoms return. You can add zyrtec (over the counter) to help with your allergies during the months when they tend to be active.J98.4 Other disorders of lung Functional Status Description No Information Available Mental Status Description No Information Available Referrals Refer to Reason for Referral Status Appt Date Lorenza Patton MD Sent 05/17/[address] [place] [address] [phone]
--- NOTE | 2019-07-30 15:43 | ED ---
Shortness of Breath - HPI Summary HPI Summary: Patient is an 84 y/o M presenting to the ED for a chief complaint of shortness of breath that has worsened in the last 2-3 weeks. Patient is present with his son. Patient notes a headache, fatigue, generalized weakness, bilateral anterior LE pain, tremors in the morning, and cough for the last 3 months. The shortness of breath worsens with exertion. On 07/29/19, patient reports having a fever of 103 F. He denies chest pain. Patient had a CT scan with Dr. Patton for the cough and placed on prednisone. Within the last 3 years, he has had an electrocardiogram. PMHx is significant for recurrent UTI, recurrent pneumonia, but CHF or COPD is denied. PSHx is significant for stent placement. He is a former smoker. He received an influenza vaccination this season. He was sent from Dr. Patton's office after having an influenza swab on 07/30/19. Medications reviewed. Allergies noted. - History of Current Complaint Chief Complaint: EDShortnessOfBreath Time Seen by Provider: 07/30/19 15:17 Hx Obtained From: Patient Onset/Duration: Sudden Onset, Still Present Timing: Constant Current Severity: Moderate Dyspnea At: Exertion Aggravating Factors: Other - Exertion Alleviating Factors: Nothing Associated Signs & Symptoms: Cough (Nonproductive), Chest Pain Unrelated to Cough, Fever - In vitals, 99.1 F - Allergy/Home Medications Allergies/Adverse Reactions: Allergies Allergy/AdvReac Type Severity Reaction Status Date / Time No Known Allergies Allergy Verified 01/31/18 10:26 Home Medications: Home Medications Furosemide TAB* [Lasix TAB*] 20 mg PO DAILY 07/30/19 [History Confirmed 07/30/19 ] Rosuvastatin (NF) [Crestor (NF)] 10 mg PO DAILY 07/30/19 [History Confirmed ] Zolpidem TAB* [Ambien TAB*] 5 mg PO BEDTIME PRN 07/30/19 [History Confirmed ] predniSONE 5 mg TAB [Deltasone 5 mg TAB] 5 mg PO DAILY 07/30/19 [History Confirmed 07/30/19] PMH/Surg Hx/FS Hx/Imm Hx Previously Healthy: Yes Endocrine/Hematology History: Denies: Hx Diabetes Cardiovascular History: Reports: Hx Hypercholesterolemia Denies: Hx Congestive Heart Failure, Hx Hypertension, Hx Pacemaker/ICD Respiratory History: Reports: Hx Chronic Bronchitis, Hx Pneumonia Denies: Hx Chronic Obstructive Pulmonary Disease (COPD) GI History: Reports: Hx Gastroesophageal Reflux Disease, Other GI Disorders - Barretts Esophagus History: Reports: Hx Benign Prostatic Hyperplasia, Other Problems/ Disorders - Recurrent UTI Denies: Hx Renal Disease Musculoskeletal History: Reports: Hx Arthritis, Hx Back Problems Sensory History: Reports: Hx Macular Degeneration - Left eye Denies: Hx Contacts or Glasses, Hx Legally Blind, Hx Deafness, Hx Hearing Aid Opthamlomology History: Reports: Hx Macular Degeneration - Left eye Denies: Hx Contacts or Glasses, Hx Legally Blind EENT History: Denies: Hx Deafness Psychiatric History: Denies: Hx Panic Disorder - Cancer History Cancer Type, 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 cardiac stent 1999. fistula;. pilonidal cyst;. APPENDECTOMY Infectious Disease History: No Infectious Disease History: Denies: History Other Infectious Disease, Traveled Outside the [place] in Last 30 Days - Family History Known Family History: Positive: Cardiac Disease, Diabetes, Other - Colon CA - Social History Occupation: Retired Alcohol Use: None Hx Substance Use: No Substance Use Type: Reports: None Hx Tobacco Use: Yes Smoking Status (MU): Former Smoker Have You Smoked in the Last Year: No Review of Systems Positive: Fever - In vitals, 99.1 F, Fatigue Negative: Chest Pain Positive: Shortness Of Breath - With exertion, Cough Positive: Myalgia - Bilateral anterior LE Neurological: Other - Positive tremors Positive: Headache, Weakness - Generalized All Other Systems Reviewed And Are Negative: Yes Physical Exam - Summary Physical Exam Summary: Constitutional: Well-developed, Well-nourished, Alert. (-) Distressed Skin: Warm, Dry HENT: Normocephalic; Atraumatic Eyes: Conjunctiva normal Neck: Musculoskeletal ROM normal neck. (-) JVD, (-) Stridor, (-) Tracheal deviation Cardio: Rhythm regular, rate normal, Heart sounds normal; Intact distal pulses; Radial pulses are 2+ and symmetric. (-) Murmur Pulmonary/Chest wall: Effort normal. (-) Respiratory distress, (-) Wheezes, (-) Rales. Crackles in the bilateral bases. Oxygen saturation is at 95%. Abd: Soft, (-) tenderness, (-) Distension, (-) Guarding, (-) Rebound Musculoskeletal: (-) Edema Lymph: (-) Cervical adenopathy Neuro: Alert, Oriented x3 Psych: Mood and affect Normal Triage Information Reviewed: Yes Vital Signs On Initial Exam: Initial Vitals Temp Pulse Resp BP Pulse Ox 99.1 F 93 16 124/63 93 07/30/19 15:15 07/30/19 15:15 07/30/19 15:15 07/30/19 15:15 07/30/19 15:15 Vital Signs Reviewed: Yes Procedures - Sedation Patient Received Moderate/Deep Sedation with Procedure: No Diagnostics - Vital Signs Vital Signs Temp Pulse Resp BP Pulse Ox 07/30/19 15:15 99.1 F 93 16 124/63 93 - Laboratory Lab Results: Lab Results 07/30/19 Range/Units 15:19 POC Glucose (mg/dL) 109 H (70-100) mg/dL Result Diagrams: 07/30/19 16:12 07/30/19 16:12 Lab Statement: Any lab studies that have been ordered have been reviewed, and results considered in the medical decision making process. - Radiology Chest X-ray Radiology Interpretation Completed By: Radiologist Summary of Radiographic Findings: Chest X-ray IMPRESSION: NO ACTIVE CARDIOPULMONARY DISEASE. Reviewed by Dr. Byrd. - CT Chest/Thorax CTA CT Interpretation Completed By: Radiologist Summary of CT Findings: Chest/Thorax CTA IMPRESSION: 1. A filling defect in a subsegmental artery of the right upper lobe is concerning for pulmonary embolus. The right ventricular caliber is larger than that on the left. Although not diagnostic, this can be seen in setting of right-sided heart strain. 2. Scattered groundglass mosaicism is suspicious for pulmonary edema; however, in the context of fever, patchy infiltrate could have a similar appearance. The right upper lobe structure described on comparison imaging is poorly evaluated (obscured by pulmonary edema). When clinically appropriate, repeat chest CT should BE obtained as presented recommended. 3. 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 Reviewed by Dr. Byrd. - EKG 15:26 Cardiac Rate: NL - 94 BPM EKG Rhythm: Sinus Rhythm ST Segment: Normal Ectopy: None Summary of EKG Findings: EKG at 15:26 shows normal sinus rhythm with 94 BPM, millimeter depressions in V5, V6, and V1. Reviewed and interpreted by Dr. Byrd. Course/Dx - Course Course Of Treatment: Patient is here after having worsening shortness of breath. Patient had a chest x-ray showed no abnormality. Patient blood or performed which was grossly unremarkable. Given patient's unexpected hypoxemia , a CTA was ordered which showed a small subsegmental PE and likely pneumonia versus fluid overload. Given patient's fever and cough, patient is treated with Rocephin and azithromycin. Anticoagulation was left up to the internal medicine team - Diagnoses Provider Diagnoses: Hypoxia, Pulmonary embolism, Pneumonia - Physician Notifications Discussed Care of Patient With: Vinny Dowd - At 18:21, Dr. Dowd reviewed the patients case and agrees to admit the patient to [facility]. Time Discussed With Above Provider: 18:21 Instructed by Provider To: Admit As Inpatient - Critical Care Time Critical Care Time: 30-74 min - 35 minutes Discharge ED - Sign-Out/Discharge Documenting (check all that apply): Patient Departure - Admit - Discharge Plan Condition: Stable Disposition: ADMITTED TO [facility] Referrals: Bethel Sol MD [Primary Care Provider] - - Billing Disposition and Condition Condition: STABLE Disposition: Admitted to [facility] - Attestation Statements Document Initiated by Robin: Yes Documenting Scribe: Rachel Dahl Provider For Whom Robin is Documenting (Include Credential): Demetri Byrd MD Scribe Attestation: Rachel Nieves, scribed for Demetri Byrd MD on 07/30/19 at 1940. Scribe Documentation Reviewed: Yes Provider Attestation: The documentation as recorded by the Rachel duong accurately reflects the service I personally performed and the decisions made by me, Demetri Byrd MD Status of Scribe Document: Viewed
[2019-07-30 16:24] LABS: ABS Basophils 0.1 10^3/ul (0-0.2); ABS Eosinophils 0.3 10^3/ul (0-0.6); ABS Lymphocytes 1.8 10^3/ul (1.0-4.8); ABS Monocytes 0.6 10^3/ul (0-0.8); ABS Neutrophils 5.2 10^3/ul (1.5-7.7); Hematocrit 38 % (42-52); Hemoglobin 13.5 g/dL (14.0-18.0); Lymphocyte % 22.2 %; Mean Corpuscular HGB Conc 36 g/dL (31-36); Mean Corpuscular Hemoglobin 32 pg (27-31); Mean Corpuscular Volume 89 fL (80-94); Mean Platelet Volume 6.4 fL (7.4-10.4); Platelet Count 321 10^3/uL (150-450); Red Blood Count 4.27 10^6 /uL (4.18-5.48); Red Cell Distribution Width 14 % (10-15); White Blood Count 7.9 10^3/uL (3.5-10.8)
[2019-07-30 16:36] LABS: Influenza A Molecular NEGATIVE (Negative); Influenza B Molecular NEGATIVE (Negative)
[2019-07-30 16:41] LABS: Albumin 3.5 g/dL (3.2-5.2); Albumin/Globulin Ratio 1.1 (1-3); BUN/Creatinine Ratio 17.1 (8-20); Calcium 8.9 mg/dL (8.6-10.3); EGFR Non-African American 56.2 (>60); Globulin 3.2 g/dL (2-4); Potassium 3.5 mmol/L (3.5-5.0); Total Protein 6.7 g/dL (6.4-8.9); Troponin I 0.01 ng/mL (<0.03)
[2019-07-30] MEDS ORDERED: Iodixanol* (CONTRAST) 320 MG/ML 100 ML SDV IV ONE (16:51)
[2019-07-30] MEDS ORDERED: cefTRIAXone(*) 1 GM in NS 0.9% 50 ML* 50 ML IVPB ONE (17:28)
[2019-07-30] MEDS ORDERED: Azithromycin 500 mg/250 ml NS 500 MG/250 ML BAG IVPB ONE (17:28)
[2019-07-30] MEDS ORDERED: Zolpidem TAB* 5 MG PO PRN (18:46)
--- NOTE | 2019-07-30 19:01 | ADMNOTE ---
Subjective Date of Service: 07/30/19 Interval History: ADMISSION HISTORY AND PHYSICAL EXAM: Allergies Allergy/AdvReac Type Severity Reaction Status Date / Time No Known Allergies Allergy Verified 01/31/18 10:26 Home Medications Medication Instructions Recorded Confirmed Type Aspirin 81 mg CHEW TAB* 81 mg PO DAILY 04/28/14 07/30/19 History Esomeprazole(NF) [Nexium(NF)] 20 mg PO BID 04/28/14 07/30/19 History Gluc Oropeza/Chondro Oropeza A/Vit C/Mn 1 cap PO BID 04/28/14 07/30/19 History [Glucosamine-Chondroitin Sftgl] Meclizine TAB* [Antivert 12.5 TAB*] 25 mg PO TID PRN 03/31/15 07/30/19 History Tamsulosin CAP* [Flomax CAP*] 0.4 mg PO DAILY 11/25/17 07/30/19 History Furosemide TAB* [Lasix TAB*] 20 mg PO DAILY 07/30/19 07/30/19 History Rosuvastatin (NF) [Crestor (NF)] 10 mg PO DAILY 07/30/19 07/30/19 History Zolpidem TAB* [Ambien TAB*] 5 mg PO BEDTIME PRN 07/30/19 07/30/19 History predniSONE 5 mg TAB [Deltasone 5 5 mg PO DAILY 07/30/19 07/30/19 History mg TAB] HPI: The patient has had difficulty with cough and SOB since 04/2018, intermittently treated with steroids, last dose of prednisone yesterday. No clear benefit with prednisone. Question of RUL pulmonary nodule, had PET scan, was evaluated by Dr. Patton. The last few weeks he has been very fatigued, has temps up to 103, had chills. Lost 5 lbs, diminished appetite. No travel outside [place] in past 6 months, no exposure to sick people. Review of Systems - Measurements Intake and Output: Intake and Output Last 24 Hours 07/28/19 07/29/19 07/30/19 07/31/19 06:59 06:59 06:59 06:59 Intake Total 50 Balance 50 Weight 178 lb Intake: IV Fluids 50 - Review of Systems Constitutional Symptoms: Positive: Weight Loss - 5 lbs Dermatology: Positive: Normal HEENT: Positive: Normal Eyes: Positive: Normal Thyroid: Positive: Normal Pulmonary: Positive: Cough, Shortness of Breath Cardiology: Positive: Normal Gastroenterology: Positive: Anorexia Genital - Urinary: Positive: Normal Musculoskeletal: Positive: Joint Pain - both legs Endocrinology: Positive: Normal Hematologic/Lymphatic: Negative: Anemia, Easy Bruising, Hx Leukemia, Hx Lymphoma, Use of Anticoagulant, Use of Antiplatelet Drugs, Other Neurology: Positive: Normal Psychiatry: Positive: Normal Allergic/Immunologic: Negative: Hx Anaphylaxis, Hx Angioedema, Hx Environmental, Hx Seasonal, Asthma, Hx HIV, Immunocompromise, Swollen Glands LymphNodes, Other Objective Active Medications: Aspirin (Aspirin 81 Mg Chew Tab*) 81 mg PO DAILY TONJA Azithromycin (Zithromax Tab*) 250 mg PO DAILY TONJA Furosemide (Lasix Tab*) 20 mg PO DAILY TONJA Ceftriaxone Sodium 1 gm/ (Sodium Chloride) 50 mls @ 100 mls/hr IVPB Q24H TONJA Tamsulosin HCl (Flomax Cap*) 0.4 mg PO DAILY TONJA Zolpidem Tartrate (Ambien Tab*) 5 mg PO BEDTIME PRN PRN Reason: SLEEP Vital Signs - 8 hr 07/30/19 07/30/19 07/30/19 15:15 15:21 15:51 Temperature 99.1 F Pulse Rate 93 95 91 Respiratory 16 23 Rate Blood Pressure 124/63 123/64 119/58 (mmHg) O2 Sat by Pulse 93 92 93 Oximetry 07/30/19 07/30/19 07/30/19 16:00 16:21 16:51 Temperature Pulse Rate 88 89 85 Respiratory 35 29 18 Rate Blood Pressure 108/55 123/56 (mmHg) O2 Sat by Pulse 92 92 93 Oximetry 07/30/19 07/30/19 07/30/19 17:00 17:47 18:00 Temperature Pulse Rate 87 81 81 Respiratory 13 22 26 Rate Blood Pressure 104/77 (mmHg) O2 Sat by Pulse 94 95 98 Oximetry 07/30/19 07/30/19 18:17 18:47 Temperature Pulse Rate 83 95 Respiratory 29 21 Rate Blood Pressure 119/64 124/67 (mmHg) O2 Sat by Pulse 91 94 Oximetry Oxygen Devices in Use Now: Nasal Cannula Appearance: Alert, partly up on ED stretcher. In good spirits. Looks comfortable. No cough during my exam. Eyes: No Scleral Icterus Ears/Nose/Mouth/Throat: Clear Oropharnyx, Mucous Membranes Moist Neck: NL Appearance and Movements; NL JVP, No Thyroid Enlargement, Masses Respiratory: Symmetrical Chest Expansion and Respiratory Effort, Clear to Auscultation, Clear to Percussion Cardiovascular: NL Sounds; No Murmurs; No JVD, RRR, No Edema, - Abdominal: NL Sounds; No Tenderness; No Distention, No Hepatosplenomegaly, - Extremities: No Edema, No Clubbing, Cyanosis, - Skin: No Rash or Ulcers, No Nodules or Sclerosis, - Neurological: Alert and Oriented x 3, NL Sensation, NL Gait Result Diagrams: 07/30/19 16:12 07/30/19 16:12 Additional Lab and Data: Lab Results 07/30/19 Range/Units 15:19 POC Glucose (mg/dL) 109 H (70-100) mg/dL Assess/Plan/Problems-Billing Assessment: - Patient Problems (1) Pneumonia Current Visit: No Status: Acute Priority: High Code(s): J18.9 - PNEUMONIA , UNSPECIFIED ORGANISM SNOMED Code(s): 704744344 Comment: - Continue IV Rocephen and Azithromycin Consult Dr. Patton for mulitple competing diagnoses. D-dimer, US both legs to help resolve question of small PE, seems clinically low probability.
[2019-07-30 19:23] LABS: Activated Partial Thrombo Time 30.8 seconds (26.0-38.0); INR 1.31 (0.82-1.09)
[2019-07-30 20:16] LABS: TSH (Thyroid Stimulating Horm) 1.81 mcIU/mL (0.34-5.60)
[2019-07-30] MEDS: Acetaminophen TAB* 325 MG PO PRN (20:46)
[2019-07-30] MEDS ORDERED: Enoxaparin(*) 40 MG/0.4 ML SYR SUBCUT SCH (21:00)
[2019-07-31] MEDS: Acetaminophen TAB* 325 MG PO PRN (06:16)
[2019-07-31] MEDS ORDERED: Aspirin 81 mg CHEW TAB* 81 MG TAB.CHEW PO SCH (09:00)
[2019-07-31] MEDS ORDERED: Tamsulosin CAP* 0.4 MG PO SCH (09:00)
[2019-07-31] MEDS ORDERED: Furosemide TAB* 20 MG PO SCH (09:00)
[2019-07-31 11:33] VITALS: BP 121/69
--- NOTE | 2019-07-31 11:42 | CONS ---
PULMONARY CONSULTATION REPORT: DATE OF CONSULT: 07/31/19 CONSULTATION REQUESTED BY: Dr. Dowd. REASON FOR CONSULT: Evaluation of hypoxemia and abnormal CT chest. 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 The patient known to me from prior outpatient evaluations for abnormal CT. The patient presented to the office on 07/30/19 for sick visit. The patient reported fevers with T-max of 103 associated with chills, fatigue, and dry cough. The patient has denied orthopnea, chest pain, wheezing, lower extremity edema. He does have history of UTIs and has been having increased urinary frequency. The patient reported that he has been drinking lot of fluids to avoid dehydration. The patient denied any sick contacts. The patient was noted to be hypoxemic when evaluated in the office with O2 sats 88% at rest, tachycardic with heart rate of 110 beats per minute, temperature was 101. His blood pressure was stable. The patient was sent into the ED for further evaluation at that time. The patient had CTA of the chest in the ED. I have personally reviewed the images with the patient today - the patient with evidence of ground glass opacities predominantly in the upper lung zones, also interspersed into the lower lobes. The patient with mildly prominent mediastinal and hilar nodes. The patient with what appears to be filling defect in subsegmental pulmonary artery leading to the right upper lobe without any central pulmonary embolism. The patient with elevated D-dimer. Lower extremity Dopplers are negative. The patient with no white count or left shift. The patient was found to be still hypoxemic. His flu swab was negative. Troponin within normal limits. BNP within normal limits. Creatinine elevated at 1.23, increased from his baseline of 1.1. CTA also showed slight bowing of the interventricular septum to the left side with slightly dilated right ventricle. The patient seen and examined at bedside this morning. The patient reports slight improvement in the fatigue levels. He is saturating 90% to 92% at rest on room air. He was requiring oxygen at 4 L yesterday. The patient has not tried to ambulate much. He continues to have dry cough. He remains afebrile since admission. EKG did not reveal any acute ST-T wave changes. He was initiated on Rocephin and Zithromax. He was also initiated on Lovenox. The patient reports no other symptoms at this time. PAST MEDICAL HISTORY: 1. Coronary artery disease. 2. BPH. 3. Pneumonia in the past. 4. Chronic neck pain. 5. History of vertigo. PAST SURGICAL HISTORY: Appendectomy and anal fistula surgery. ALLERGIES: LIPITOR and CIPRO. FAMILY HISTORY: Father with history of hypoglycemia, due to heart disease in 80s. Mother with diabetes and colon cancer and due to heart disease. 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 Family is close by and helpful. Former smoker, smoked for 28 years and quit in 1981. Drinks alcoholic beverages occasionally. No drug abuse. The patient denies recent travel or sick contacts. REVIEW OF SYSTEMS: All 12 systems reviewed and as per HPI. PHYSICAL EXAM: The patient in bed, in no apparent distress. Vital Signs: Temperature 98.7, pulse 77 beats per minute, respiratory rate 18 per minute, O2 sat 90% to 92% on room air, was satting 94% to 95% on 4 L early this morning, blood pressure 120/67. HEENT: Pupils equal, reactive to light. Mucous membranes moist. Lungs: Diminished air entry bilaterally. Crackles present bilaterally and some inspiratory squeaks. Cardiovascular: S1, S2 present, regular. Abdomen: Soft, nontender, nondistended. Bowel sounds present. Extremities: Normal range of motion. Trace edema. Skin: No rashes or bruises. Neurologic: Alert, awake, oriented x3. No focal deficits. DIAGNOSTIC STUDIES/LAB DATA: WBC count 7.9, hemoglobin 13.5, hematocrit 38, platelet count 321. Sodium 136, potassium 3.5, chloride 99, bicarb 28, BUN 21, creatinine 1.23. BNP 44. Troponin within normal limits. TSH within normal limits. Influenza A and B negative. CT of the chest as described above in HPI. Dopplers negative for DVT. Echocardiogram pending. IMPRESSION AND RECOMMENDATIONS: 84-year-old male, former smoker with history of coronary artery disease, recent pneumonias that have been recurrent since April of last year. The patient with prior abnormal CT chest with a spiculated nodule in the right upper lobe, which did not reveal significant uptake on PET scan. The patient admitted with fevers, hypoxemia, found to have airspace opacities bilaterally and possibility of small pulmonary embolism in subsegmental branch in the right upper lobe. The patient admitted with possible community-acquired pneumonia. Also suspect possible exacerbation of interstitial lung disease, even though he was not formally diagnosed in the past. His prior CTs did reveal evidence of granulomatous disease. He has known history of prominent lymph nodes. The patient also with possible pulmonary embolism on this admission. Hypoxemia likely secondary to V/Q mismatch from ground-glass opacities in the lung. 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 Will initiate the patient on antibiotics and steroids. Reassess O2 requirements today. The patient will need echocardiogram to evaluate for right heart strain. The patient would like to go home today. Will possibly consider discharge after echocardiogram if stable. He might need arrangements for home O2. Thank you for allowing me to participate in the care of your patient. Will follow up with you. [id number]/BONNY #: [id number] LISSETTE
[2019-07-31] MEDS ORDERED: cefTRIAXone(*) 1 GM in NS 0.9% 50 ML* 50 ML IVPB SCH (14:00)
--- NOTE | 2019-07-31 14:39 | ECHO ---
*[facility]* [place] [address] Fax #: [phone] Transthoracic Echocardiogram Patient: Tyson Hill : 1935 Study Date: 07/31/2019 Age: 84 Gender: M HR: 83 bpm Height: 64 in /162.6 cm BSA: 1.86 m^2 Weight: 177.6 lb /80.7 kg BMI: 30.6 kg/m^2 *Social Welfare Clerk: * Lisa Duarte *Referring Physician: * Vinny Dowd *Reading Physician: * Salas Aguilar MD Indications: SOB. History: Coronary artery disease. Risk factors: Former tobacco use. Hypertension. Dyslipidemia. Conclusions Summary: - Left ventricle: Systolic function is normal. The estimated ejection fraction is 55-60%. Wall motion is normal; there are no regional wall motion abnormalities. - Left atrium: The atrium is mildly to moderately dilated. - Mitral valve: There is trace regurgitation. - Aortic valve: There is trace regurgitation. - No previous echocardiogram available. Study data: Transthoracic echocardiogram. Procedure: Transthoracic echocardiography was performed. Image quality was good. Complete 2D, spectral Doppler, and color flow Doppler. Location: Bedside. Patient status: Inpatient. Patient room number: 418-1. Findings Left ventricle: The cavity size is normal. Wall thickness is mildly to moderately increased. Systolic function is normal. The estimated ejection fraction is 55-60%. Wall motion is normal; there are no regional wall motion abnormalities. Left ventricular diastolic function parameters are normal. Right ventricle: The cavity size is normal. Pacer wire noted in the right ventricle. Systolic function is normal. Ventricular septum: The ventricular septum is normal. Left atrium: The atrium is mildly to moderately dilated. Right atrium: The atrium is normal in size. Pacer wire noted in right atrium. Mitral valve: Appears calcified. The leaflets are mildly thickened. There is no evidence of stenosis. There is trace regurgitation. Aortic valve: The valve is trileaflet. There is no evidence of stenosis. There is trace regurgitation. Tricuspid valve: The valve is structurally normal. The leaflets are normal thickness. There is no evidence of stenosis. There is mild regurgitation. Pulmonic valve: The valve is structurally normal. There is no evidence of stenosis. There is trace regurgitation. Pulmonary arteries: Systolic pressure is within the normal range, estimated to be 34 mm Hg. Measurements Left ventricle Value Ref Aortic valve Value Ref JUAN CARLOS, LAX (L) 4.1 cm 4.2 - Peak v, S 1.27 m/sec ----- 5.8 VTI, S 30.0 cm ----- ESD, LAX (L) 2.4 cm 2.5 - Mean grad, S 4.0 mm Hg ----- 4.0 Peak grad, S 6.0 mm Hg ----- FS, LAX 41 % 25 - 43 SANTOSH, VTI 3.66 cm^2 ----- PW, ED, LAX (H) 1.4 cm 0.6 - SANTOSH, Vmax 3.26 cm^2 ----- 1.0 FS 41 % 25 - 43 Mitral valve Value Ref Mid-wall FS 12 % -------- Peak E 0.71 m/sec ----- PW, ED (H) 1.4 cm 0.6 - Peak A 0.99 m/sec ----- 1.0 Decel time 169 ms ----- PW/ID, ED 0.33 -------- Peak grad, D 2.0 mm Hg ----- E', lat ashwin, TDI (L) 5.5 cm/sec >=10.0 Peak E/A ratio 0.7 -- --- E/e', lat ashwin, TDI 13 -------- E', med ashwin, TDI (L) 5.5 cm/sec >=7.0 Pulmonic valve Value Re f E/e', med ashwin, TDI 13 -------- Peak v, S 0.68 m/sec ----- E', avg, TDI 5.5 cm/sec -------- Peak grad, S 2.0 mm Hg ----- E/e', avg, TDI 13 <=14 Tricuspid valve Value Ref LVOT Value Ref TR peak v 2.69 m/sec <=2.8 Diam, S 2.00 cm -------- Peak RV-RA grad, S 29 mm Hg ----- Area 3.1 cm^2 -------- Max TR andrés 3.28 m/sec ----- Peak andrés, S 1.32 m/sec -------- Peak grad, S 7 mm Hg -------- Aortic root Value Ref Mean grad, S 4 mm Hg -------- Root diam 2.9 cm <4.0 SV 110 ml -------- Ascending aorta Value Ref Ventricular septum Value Ref AAo AP diam, S 3.2 cm ----- IVS, ED (H) 1.5 cm 0.6 - 1.0 Aortic arch Value Ref Arch diam 3.0 cm ----- Right ventricle Value Ref JUAN CARLOS, LAX 3.7 cm -------- Decending aorta Value Ref JUAN CARLOS minor ax, A4C 2.9 cm 1.9 - Aníbal peak andrés 0.78 m/sec ----- mid 3.5 Left atrium Value Ref Vol/bsa, ES, 1-p 37 ml/m^2 12 - 37 A4C Legend: (L) and (H) watson values outside specified reference range. Prepared and electronically signed by Salas Aguilar MD 07/31/2019 14:38
[2019-07-31] MEDS ORDERED: Azithromycin TAB* 250 MG PO SCH (16:00)
--- NOTE | 2019-07-31 21:26 | DS ---
CC: Dr. Sol; Dr. Patton * DISCHARGE SUMMARY: DATE OF ADMISSION: 07/31/19 HISTORY OF PRESENT ILLNESS/HOSPITAL COURSE: This 84-year-old man presented with cough and shortness of breath. He has had problems of similar nature since April 2019. He was treated intermittently with steroids. The last dose of his last course of prednisone was taken the day before admission. He did not really have obvious benefit. There was a question of right upper lobe nodule and he had a PET scan in 2019. He has been followed by Dr. Patton. For the last few weeks he has temperatures going up and down of high as 102 degrees. He has had chills, he lost 5 pounds. Rest of history is detailed in the admission note. He had a CTA of the chest in the emergency room, there was concern for a filling defect in the subsegmental artery in the right upper lobe, however, there was ground glass mosaic system in the lungs either pulmonary edema or patchy infiltrate. There was unchanged lymphadenopathy in the chest. The patient was treated with ceftriaxone and azithromycin. Following morning, Dr. Patton saw the patient, he already felt much better. She added prednisone 30 mg daily. I did venous Dopplers of the legs, which were both negative. The D-dimer was elevated, but this is a very low specificity. I think the clinical picture weighs against pulmonary embolism, in any event this should be a very small subsegmental embolus. So my feeling is it is most likely is not actually an embolus if at all. The D-dimer was elevated, but the venous Dopplers of the legs were negative. FINAL DIAGNOSIS: Pneumonia. DISCHARGE MEDICATIONS: 1. Azithromycin 250 mg daily. 2. Prednisone 10 mg 3 daily with a 7 day supply. 3. Cefuroxime 500 mg b.i.d. for 6 days. 4. Esomeprazole 20 mg b.i.d. 5. Glucosamine/chondroitin as prescribed. 6. Aspirin 81 mg daily. 7. Meclizine 25 mg t.i.d. p.r.n. 8. Tamsulosin 0.4 mg daily. 9. Furosemide 20 mg daily. 10. Zolpidem 5 mg h.s. p.r.n. 11. Rosuvastatin 10 mg daily. CONDITION ON DISCHARGE: Improved. DISPOSITION ON DISCHARGE: Discharged home. [id number]/[facility] #: [id number] [facility]
== END 2019-07-31 15:50 | disposition home or self-care (01) ==
LOC: ED 15:07 → MED 18:39 → INTOOBSV 18:39
PROVIDERS: ADMIT Internal Medicine; ATTEND Internal Medicine
DX: J18.9 Pneumonia, unspecified organism (principal); R05 Cough; R06.02 Shortness of breath; M54.2 Cervicalgia; R42 Dizziness and giddiness; N40.0 Benign prostatic hyperplasia without lower urinary tract symptoms; I25.10 Atherosclerotic heart disease of native coronary artery without angina pectoris; Z79.899 Other long term (current) drug therapy; Z79.82 Long term (current) use of aspirin; Z87.891 Personal history of nicotine dependence
CPT/HCPCS: 36415; 71045; 71275; 80053; 83690; 83880; 84443; 84484; 85025; 85379; 85610; 85730; 87040; 93005; 93306; 93970; 96365; 96372; 96375; 99284; A9270-GY; G0378; J0456; J0696; J1650; J7512; Q9967

== ENCOUNTER 2019-10-02 09:37 | Day surgery (SDC) | payer BC ==
--- OUTSIDE RECORDS SUMMARY | 2019-10-02 09:47 | XMS REPORT | Continuity of Care Document ---
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 Cervical spondylosis Vassilmarcos De Los Santos MD Onset: 11/15/2017 Social History Type Date Description Comments Sex Unknown Cigarette Use Quit 26 Years Ago ETOH Use 10/31/2017 Drinks Alcoholic Beverages Rarely Recreational Drug Use Denies Drug Use Tobacco Use Start: Unknown End: Patient is a former smoked for 28 Unknown smoker years, quit in 1981 Smoking Status Reviewed: 08/07/19 Patient is a former smoked for 28 smoker years, quit in 1981 Exercise Type/Frequency Exercises regularly gym daily while in [place], in [employer] work Allergies, Adverse Reactions, Alerts Active Allergies Reaction Severity Comments Date Lipitor muscle pain 05/19/2013 Cipro sensitvity-some tongue swelling 04/10/2015 Inactive Allergies NKDA 12/13/2007 Medications Active Medications SIG Qnty Indications Ordering Date Provider Prednisone Two tablets daily 6tabs J18.9 Bret Lemus NP 08/07/2019 10mg Tablets for two days an then one tablet daily for two days. Zolpidem Tartrate Bedtime Unknown 07/30/2019 5mg Tablets Flovent HFA 2 puffs twice 12gm R05 [...] Stoddard 04/29/2016 0.4mg day Hiral Sol Capsules Aspirin 81 Low Dose Every Day Unknown 04/28/2014 81mg Chewtabs Glucosamine & 1 tab bid Jose Esquivel 04/30/2013 Chrondroiaudrey Crouch M.D.,FACP 2508-6259 Packet Nitro-bid to toes bid prn 30g Jose Esquivel 07/31/2012 2% Ointment Hiral Crouch,FACP Meclizine HCL 1/2-1 by mouth 30tabs Bethel E. 01/29/2009 25mg three times a day Hiral Sol Tablets as needed Ambien 1 by mouth every 30tabs Bret Lemus NP 03/29/2008 5mg Tablets night at bedtime as needed insomnia Esomeprazole 1 by mouth bid 180caps Bethel E. Magnesium Hiral Sol 20mg Capsules DR Prespablito Areds 2 2 by mouth daily Unknown Areds 2 Capsules History Medications Prednisone tid for 7 days J84.116 Lorenza Patton, 08/06/2019 - 10mg 08/06/2019 Tablets Prednisone Every Day 21tabs Unknown 07/31/2019 - 10mg 08/07/2019 Tablets Cefuroxime Axetil Twice Daily 12tabs Unknown 07/31/2019 - 08/07/2019 500mg Tablets Cefuroxime Axetil Twice Daily Unknown 07/31/2019 - 08/07/2019 250mg Tablets Prednisone 98tabs J84.116 Lorenza Patton, 05/22/2019 - 5mg 08/06/2019 Tablets Clotrimazole dissolve into 70units B37.0 Bret Lemus NP 04/05/2019 - 10mg mouth slowly 5 04/12/2019 Maddy times a day x 2 weeks Amoxicillin/Clavulan take one tablet 20tabs J01.90 Bret Lemus NP 2018 - ate Potassium q12 hours for 10 04/17/2019 days 875-125mg Tablets Medications Administered in Office Medication SIG Qnty Indications Ordering Provider Date [facility] pharmacy administered Unknown 04/22/2019 Injection Immunizations CPT Code Status Date Vaccine Lot # [id number] Given 03/22/2019 Tdap - Tetanus/Diptheria/Acellular Pertussis 38102 Given 03/22/2019 Influenza Virus Vaccine, Quadrivalent, Split, Preservative Free [id number] Given 03/11/2016 Fluzone Vaccine 90785 Given 03/17/2015 Fluzone High Dose 15652 Given 01/10/2015 Pneumococcal Conjugate Vaccine 13 Valent For [id number] Intramuscular Use 52045 Given 04/03/2014 Fluzone High Dose 56482 Given 04/17/2013 Influenza Virus 3Yrs & Over 03808 Given 04/09/2011 Influenza Virus 3Yrs & Over 28936 Given 04/09/2011 Tdap - Tetanus/Diptheria/Acellular Pertussis [id number] 73726 Given 04/09/2011 Pneumonia Vaccine [id number] 80603 Given 05/08/2010 Influenza Virus 3Yrs & Over [id number] 79036 Given 05/06/2009 Influenza Virus Vaccine, Pandemic Formulation 03723 Given 05/06/2009 Influenza Virus Vaccine, Pandemic Formulation [id number] 46819 Given 05/06/2009 Administration Swine Flu Shot 89932 Given 04/21/2009 Influenza Virus 3Yrs & Over 84712 Given 04/21/2009 Influenza Virus 3Yrs & Over [id number] 02724 Given 11/22/2008 Zoster (Zostavax) [id number] 75316 Given 03/29/2008 Influenza Virus 3Yrs & Over 17902 Given 03/29/2008 Influenza Virus 3Yrs & Over [id number] Vital Signs Date Vital Result Comment 08/07/2019 9:34am Height 64 inches 5'4" Weight 183.00 lb Heart Rate 80 /min BP Systolic Sitting 133 mmHg BP Diastolic Sitting 72 mmHg Body Temperature 97.6 F O2 % BldC Oximetry 93 % BMI (Body Mass Index) 31.4 kg/m2 07/30/2019 12:55pm Height 64 inches 5'4" Weight 183.50 lb Heart Rate 110 /min BP Systolic 106 mmHg BP Diastolic 58 mmHg Body Temperature 101.0 F O2 % BldC Oximetry 88 % BMI (Body Mass Index) 31.5 kg/m2 Results Test Acquired Date Facility Test Result H/L Range Note Inr/Protime 07/30/2019 [facility] Inr 1.31 High 0.82-1.[address] [place] [address] [phone] Laboratory test 07/30/2019 [facility] Partial 30.8 Normal 26.0 -38.[address] [address] PTT [phone] D Dimer Quantitative 533 ng/mL High Less Than 230 2 Comp Metabolic 07/30/2019 [facility] Sodium 136 mmol/L Normal 135-[address] [place] [address] [phone] Potassium 3.5 mmol/L Normal 3.5-5.0 Chloride 99 mmol/L Low 101-111 Co2 Carbon Dioxide 28 mmol/L Normal 22-32 Anion Gap 9 mmol/L Normal 2-11 Glucose 100 mg/dL Normal 70-100 Blood Urea Nitrogen 21 mg/dL Normal 6-24 Creatinine 1.23 mg/dL High 0.67-1.17 BUN/Creatinine Ratio 17.1 Normal 8-20 Calcium 8.9 mg/dL Normal 8.6-10.3 Total Protein 6.7 g/dL Normal 6.4-8.9 Albumin 3.5 g/dL Normal 3.2-5.2 Globulin 3.2 g/dL Normal 2-4 Albumin/Globulin Ratio 1.1 Normal 1-3 Total Bilirubin 1.00 mg/dL Normal 0.2-1.0 Alkaline Phosphatase 45 U/L Normal 34-104 Alt 15 U/L Normal 7-52 Ast 22 U/L Normal 13-39 Egfr Non- 56.2 >60 Egfr 68.0 >60 3 Laboratory test 07/30/2019 [facility] Lipase 15 U/L Normal 11.0-82.[address] [place] [address] [phone] Troponin-I (TnI) 0.01 ng/mL <0.03 4 CBC Auto 07/30/2019 [facility] White Blood 7.9 10^3/uL Normal 3.5-10.[address] [place] [address] [phone] Red Blood Count 4.27 10^6/uL Normal 4.18-5.48 Hemoglobin 13.5 g/dL Low 14.0-18.0 Hematocrit 38 % Low 42-52 Mean Corpuscular Volume 89 fL Normal 80-94 Mean Corpuscular Hemoglobin 32 pg High 27-31 Mean Corpuscular HGB Conc 36 g/dL Normal 31-36 Red Cell Distribution Width 14 % Normal 10-15 Platelet Count 321 10^3/uL Normal 150-450 Mean Platelet Volume 6.4 fL Low 7.4-10.4 Abs Neutrophils 5.2 10^3/uL Normal 1.5-7.7 Abs Lymphocytes 1.8 10^3/uL Normal 1.0-4.8 Abs Monocytes 0.6 10^3/uL Normal 0-0.8 Abs Eosinophils 0.3 10^3/uL Normal 0-0.6 Abs Basophils 0.1 10^3/uL Normal 0-0.2 Abs Nucleated RBC 0.0 10^3/uL Granulocyte % 65.3 % Lymphocyte % 22.2 % Monocyte % 7.5 % Eosinophil % 4.0 % Basophil % 1.0 % Nucleated Red Blood Cells % 0.0 Laboratory test 07/30/2019 [facility] B-Type 44 pg/mL <=[address] [place] [address] Peptide BNP [phone] TSH (Thyroid Stim Horm) 1.81 mcIU/mL Normal 0.34-5.60 Blood Culture SEE RESULT BELOW 5 Influenza A & B 07/30/2019 [facility] Flu AB Disclaimer (SEE NOTE) [address] [place] [address] [phone] Influenza A Molecular NEGATIVE Negative Influenza B Molecular NEGATIVE Negative 7 Laboratory test 07/30/2019 [facility] Point of Care 109 mg/dL High 70-100 [address] [place] [address] [phone] Influenza A & B 07/30/2019 [facility] Flu AB (SEE 9, [address] Disclaimer NOTE) [place] [address] [phone] Influenza A Molecular NEGATIVE Negative Influenza B Molecular NEGATIVE Negative 11 Laboratory test 05/15/2019 [facility] Point of Care 72 mg/dL Normal 70-100 [address] [place] [address] [phone] Laboratory test 02/08/2019 [facility] PSA Screening 0.559 Normal 0-4.000 [address] ng/mL [place], [place] [id number] [phone] 1 Standard intensity warfarin therapeutic range: 2.0-3.0 High intensity warfarin therapeutic range: 2.5-3.5 2 Please note: The following may produce a false positive D Dimer test: - Rheumatoid factor greater than 60 IU/ml - Plasma hemoglobin greater than 0.05 gm/dl - Bilirubin greater than 50 mg/dl - Lipids greater than 1000 mg/dl - FDP greater than 20 ug/ml 3 Because ethnic data is not always readily [...] 15-29 5 Kidney failure <15 (or dialysis) 4 Troponin-I testing on Plasma Separator Tubes (PST) has a known false positive rate of 0.20-0.40%. All positive troponins reflex immediately to secondary confirmatory testing. Using the [employer] DxI 800 Access Immunoassay systems, the 99th percentile upper reference limit was demonstrated to be < 0.03 ng/mL. 5 SEE RESULT BELOW Name: TYSON WINCHESTER : [address]: Vinny Dowd MD Acct: [id number] Unit: [id number] AGE: 84 Location: [place] [address] Re07/30/19 Dis: 07/31/19 SEX: M Status: DIS Melanie SPEC: [id number] VANESSA: 07/30/[address] [facility] [address]: Demetri Byrd MD REQ: [id number] RECD: 07/30/19 STATUS: ELOINA GONZALES DR: Bethel Sol III, MD _ SOURCE: BLOOD,[facility]: ORDERED: Blood Cult Procedure Result Reported Site Aerobic Culture Bottle Final 08/04/19- 1619 ML No Growth Day 5 Anaerobic Culture Bottle Final 08/04/19- 1617 ML No Growth Day 5 * ML - Main Lab . END OF REPORT DEPARTMENT OF PATHOLOGY, [address] [place] [address] James Lozano M.D. Director [facility] # [id number] 6 Suboptimal collection technique may reduce sensitivity of test. Refer to the [facility] Test Catalog for collection information: [email or web address] As with all diagnostic procedures, the laboratory results obtained should be used in conjunction with other clinical information available to the physician, including confirmation by another method, as applicable. 7 Education Program Associate: [id number] 8 Education Program Associate: [id number] 10 Suboptimal collection technique may reduce sensitivity of test. Refer to the [facility] Test Catalog for collection information: [email or web address] As with all diagnostic procedures, the laboratory results obtained should be used in conjunction with other clinical information available to the physician, including confirmation by another method, as applicable. 11 Education Program Associate: [id number] 12 Education Program Associate: [id number] 13 Serum levels of PSA measured using the [employer] [place] DXI Hybritech immunoassay should not be interpreted [...] methods or kits cannot be used interchangeably. Procedures Date Code Description Status 07/31/2019 23536 ECHO Transthorasic Realtime 2D W Doppler & Color Flow Completed Hosp 01/11/2019 [id number] Diabetic Retinal Eye Exam Completed 06/26/2012 [id number] Colonoscopy Completed 02/10/2007 [id number] Colonoscopy Completed Medical Devices Description No Information Available Encounters Type Date Location Provider Dx Diagnosis Office Visit 06/21/2019 [facility] Marsha J84.116 Cryptogenic 8:00a [facility] Ryan organizing User Experience Designer pneumonia J98.4 Other disorders of lung J30.89 Other allergic rhinitis Office Visit 05/22/2019 11:30a Pulmonology And Lorenza J84.116 Cryptogenic [facility] Abdi organizing User Experience Designer pneumonia J98.4 Other disorders of lung J20.9 Acute bronchitis, unspecified Office Visit 05/10/2019 11:00a [facility] Lorenza R91.8 Other nonspecific [facility] abnormal finding User Experience Designer of lung field Z87.891 Personal history of nicotine dependence Office Visit 04/18/2019 2:20p User Experience Designer Internal Bret Allan, R05 [facility] [employer] Office Visit 04/05/2019 10:20a User Experience Designer Internal Bret Allan, J01.90 Acute sinusitis, Medicine - [facility] [employer]ER unspecified J20.9 Acute bronchitis, unspecified B37.0 Candidal stomatitis Office Visit 02/08/2019 11:00a Eduardo Internal Bretbartolo Lemus NP Z00.00 [facility] exam w/o abnormal findings I50.32 Chronic diastolic (congestive) heart failure I10 Essential (primary) hypertension E78.00 Pure hypercholesterolemia, unspecified 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 Z12.5 Encounter for screening for malignant neoplasm of prostate J30.89 Other allergic rhinitis Assessments Date Code Description Provider 08/07/2019 J18.9 Pneumonia, unspecified organism Bret Allan, WO[employer] AS[employer]ER 07/30/2019 R06.02 Shortness of breath Marsha Ryan, WO[employer] ASSEMBLER 07/30/2019 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 Marsha Ryan, WOOD FURNITURE ASSEMBLER 07/30/2019 R09.02 Hypoxemia Marsha Ryan, WOOD [employer]ITURE ASSEMBLER 07/30/2019 R50.9 Fever, unspecified Marsha Ryan, WOOD [employer]URNITURE ASSEMBLER 06/21/2019 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90 Acute sinusitis, unspecified Bret Allan, WO[employer]ITURE ASSEMBLER 04/05/2019 J20.9 Acute bronchitis, unspecified Bret Allan, WOOD FURNITURE ASSEMBLER 04/05/2019 B37.0 Candidal stomatitis Bret Allan, WO[employer]IT[employer] ASSEMBLER 02/08/2019 Z00.00 Encounter for general adult medical Bret Allan, WO[employer]ITURE ASSEMBLER examination without abnormal findings 02/08/2019 I50.32 Chronic diastolic (congestive) heart Bret Allan, WO[employer] ASSEMBLER failure 02/08/2019 I10 Essential (primary) hypertension Bret Allan, WOOD FURNITURE ASSEMBLER 02/08/2019 E78.00 Pure hypercholesterolemia, unspecified Bret Allan, WOOD FURNITURE ASSEMBLER 02/08/2019 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 Lemus NP coronary artery with 02/08/2019 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 Bret Lemus NP dysplasia 02/08/2019 Z12.5 Encounter for screening for malignant Bret Lemus NP neoplasm of prostate 02/08/2019 J30.89 Other allergic rhinitis Bret Lemus NP Plan of Treatment Future Appointment(s):02/12/2020 11:00 am - Bret Lemus NP at [facility] 8:00 am - Marsha Ryan NP at [facility]08/07/2019 - Bret Lemus NPJ18.9 Pneumonia, unspecified organismNew Medication:Prednisone 10 mg - Two tablets daily for two days an then one tablet daily for two days.Comments:I have extended the prednisone for 4 more days.If you develop increased shortness of breath, fever, or worsening symptoms seek medical attention.Follow up:[facility] in February Functional Status Description No Information Available Mental Status Description No Information Available Referrals Refer to Reason for Referral Status Appt Date Lorenza Patton MD Sent 05/17/[address] [place] [phone]
--- OUTSIDE RECORDS SUMMARY | 2019-10-02 09:47 | XMS REPORT | Continuity of Care Document ---
:1935 External Reference #:[id number] Author Name Marsha Ryan NP (transmitted by agent of provider Chanel Aleman) Address [address] [facility], [address] [place] [id number] Care Team Providers Name Role Phone Ellis Vela MD - Gastroenterology Care Team Information Decorative Cutting Machine Tender [phone] [place] Sol III, MD - Internal Care Team Information Decorative Cutting Machine Tender Medicine Jak Maynard MD - Care Team Information Decorative Cutting Machine Tender [phone] Otolaryngology Problems Active Problems Provider Date Coronary [...] M.D.,FACP Onset: 2015 outflow obstruction Cervical spondylosis Vasdann De Los Santos MD Onset: 11/15/2017 Social [...] Type/Frequency Exercises regularly gym daily while in [place], in [place] [employer] work Allergies, Adverse Reactions, Alerts Active Allergies Reaction Severity Comments Date Lipitor muscle pain 05/19/2013 Cipro sensitvity-some tongue swelling 04/10/2015 Inactive Allergies NKDA 12/13/2007 Medications Active Medications SIG Qnty Indications Ordering Date Provider Potassium Chloride ER take 1 tabs by 30tabs Bret Lemus NP 09/06/2019 mouth daily 20Meq Tablets ER Zolpidem Tartrate Bedtime Unknown 07/30/2019 5mg Tablets [...] & 1 tab bid Jose Esquivel 04/30/2013 Chronnataliia Crouch M.D.,FACP 7675-4307 Packet Nitro-bid to toes bid prn 30g [...] daily Unknown Areds 2 Capsules History Medications Amoxicillin/Clavulanate take one 20tabs Bret Lemus, 09/14/2019 - Potassium tablet q12 REGIONAL PROGRAM MANAGER 09/21/2019 875-125mg Tablets hours for 10 days Prednisone Two tablets 6tabs J18.9 Bret Lemus, 08/07/2019 - 10mg Tablets daily for two REGIONAL PROGRAM MANAGER 08/14/2019 days an then one tablet daily for two days. Prednisone tid for 7 days J84.11 Lorenza 08/06/2019 - 10mg Tablets 6 MD Abdi 08/06/2019 Prednisone Every Day 21tabs Unknown 07/31/2019 - 10mg Tablets 08/07/2019 Cefuroxime Axetil Twice Daily 12tabs Unknown 07/31/2019 - 500mg Tablets 08/07/2019 Cefuroxime Axetil Twice Daily Unknown 07/31/2019 - 250mg Tablets 08/07/2019 Prednisone 98tabs J84.11 Lorenza 05/22/2019 - 5mg Tablets 6 MD Abdi 08/06/2019 Clotrimazole dissolve into 70units B37.0 Bret Lemus 04/05/2019 - 10mg Maddy mouth slowly 5 REGIONAL PROGRAM MANAGER 04/12/2019 times a day x 2 weeks Amoxicillin/Clavulanate take one 20tabs J01.90 Bret Lemus 04/05/2019 - Potassium tablet q12 REGIONAL PROGRAM MANAGER 04/17/2019 875-125mg Tablets hours for 10 days Medications Administered in Office Medication SIG Qnty Indications [facility]ing [facility] Unknown 04/22/2019 Injection Immunizations CPT Code Status Date Vaccine Lot # [id number] Given 03/22/2019 Tdap - Tetanus/Diptheria/Acellular Pertussis 03154 Given 03/22/2019 Influenza Virus Vaccine, Quadrivalent, Split, Preservative Free [id number] Given 03/11/2016 Fluzone Vaccine 13782 Given 03/17/2015 Fluzone High Dose 77761 Given 01/10/2015 Pneumococcal Conjugate Vaccine 13 Valent For [id number] Intramuscular Use 59876 Given 04/03/2014 Fluzone High Dose 82351 Given 04/17/2013 Influenza Virus 3Yrs & Over 06733 Given 04/09/2011 Influenza Virus 3Yrs & Over 27508 Given 04/09/2011 Tdap - Tetanus/Diptheria/Acellular Pertussis [id number] 23056 Given 04/09/2011 Pneumonia Vaccine [id number] 23799 Given 05/08/2010 Influenza Virus 3Yrs & Over [id number] 28987 Given 05/06/2009 Influenza Virus Vaccine, Pandemic Formulation 73763 Given 05/06/2009 Influenza Virus Vaccine, Pandemic Formulation [id number] 03908 Given 05/06/2009 Administration Swine Flu Shot 05055 Given 04/21/2009 Influenza Virus 3Yrs & Over 03106 Given 04/21/2009 Influenza Virus 3Yrs & Over [id number] 69888 Given 11/22/2008 Zoster (Zostavax) [id number] 61903 Given 03/29/2008 Influenza Virus 3Yrs & Over 56963 Given 03/29/2008 Influenza Virus 3Yrs & Over [id number] Vital Signs Date Vital Result Comment 08/07/2019 [...] Test Result H/L Range Note Inr/Protime 07/30/2019 [facility] Inr 1.31 High 0.82-1.[address] [place] [address] [phone] Laboratory test 07/30/2019 [facility] Partial 30.8 Normal 26.0 -38.[address] [place] [address] PTT [phone] D Dimer Quantitative 533 ng/mL High Less Than 230 2 Comp Metabolic 07/30/2019 [facility] Sodium 136 mmol/L Normal 135-[address] [place] [address] [phone] Potassium 3.5 mmol/L Normal 3.5-5.0 Chloride 99 [...] Egfr 68.0 >60 3 Laboratory test 07/30/2019 [facility] Lipase 15 U/L Normal 11.0-82.[address] [place] [address] [phone] Troponin-I (TnI) 0.01 ng/mL <0.03 4 CBC Auto 07/30/2019 [facility] White Blood 7.9 10^3/uL Normal 3.5-10.[address] [place] [address] [phone] Red Blood Count 4.27 10^6/uL Normal 4.18-5.48 [...] Blood Cells % 0.0 Laboratory test 07/30/2019 [facility] B-Type 44 pg/mL <=[address] [place] [address] Peptide BNP [phone] TSH (Thyroid Stim Horm) 1.81 mcIU/mL Normal 0.34-5.60 Blood Culture SEE RESULT BELOW 5 Influenza A & B 07/30/2019 [facility] Flu AB Disclaimer (SEE NOTE) [address] [place] [address] [phone] Influenza A Molecular NEGATIVE Negative Influenza B Molecular NEGATIVE Negative 7 Laboratory test 07/30/2019 [facility] Point of Care 109 mg/dL High 70-100 [address] [place] [address] [phone] Influenza A & B 07/30/2019 [facility] Flu AB (SEE 9, [address] Disclaimer NOTE) [place] [address] [phone] Influenza A Molecular NEGATIVE Negative Influenza B Molecular NEGATIVE Negative 11 Laboratory test 05/15/2019 [facility] Point of 72 mg/dL Normal 70-100 [address] [place] [address] [phone] 1 Standard intensity warfarin therapeutic range: 2.0-3.0 [...] immediately to secondary confirmatory testing. Using the [employer] DxI 800 Access Immunoassay systems, the 99th percentile upper reference limit was demonstrated to be < 0.03 ng/mL. 5 SEE RESULT BELOW Name: TYSON WINCHESTER Tomy : [address]: Vinny Dowd MD Acct: [id number] Unit: [id number] AGE: 84 Location: [facility] 418- Re07/30/19 Dis: 07/31/19 SEX: M Status: DIS Melanie SPEC: [id number] VANESSA: 07/30/[address]: Demetri Byrd MD REQ: [id number] RECD: 07/30/19 STATUS: ELOINA GONZALES DR: [place] Sol III, MD _ SOURCE: BLOOD,[facility] ORDERED: Blood Cult Procedure Result Reported Site Aerobic Culture Bottle Final 08/04/19- 9 ML No Growth Day 5 Anaerobic Culture Bottle Final 08/04/19- 7 ML No Growth Day 5 * ML - Main Lab . END OF REPORT DEPARTMENT OF PATHOLOGY, [address] [place] [address] James Lozano M.D. Director [facility] # [id number] 6 Suboptimal collection technique may reduce sensitivity of test. Refer to the [facility] Test Catalog for collection information: [email or web address] As with all diagnostic procedures, the laboratory results obtained should be used in conjunction with other clinical information available to the physician, including confirmation by another method, as applicable. 7 Trials Manager: [id number] Trials Manager: [id number] 10 Suboptimal collection technique may reduce sensitivity of test. Refer to the [facility] Test Catalog for collection information: [email or web address] As with all diagnostic procedures, the laboratory results obtained should be used in conjunction with other clinical information available to the physician, including confirmation by another method, as applicable. 11 Trials Manager: [id number] Trials Manager: [id number] Procedures Date Code Description Status 07/31/2019 64464 ECHO Transthorasic Realtime 2D W Doppler & Color Flow Completed Hosp 01/11/2019 935094112 Diabetic Retinal Eye Exam Completed 06/26/2012 89692246 Colonoscopy Completed 02/10/2007 62829203 Colonoscopy Completed Medical Devices Description No Information Available Encounters Type Date Location Provider Dx Diagnosis Office Visit 08/07/2019 [employer] Internal Bretbartolo Lemus NP J18.9 Pneumonia, 9:20a Medicine - [facility] unspecified organism Office Visit 07/31/2019 [facility] Mar Raya18.9 Pneumonia, 9:28a Assedwar de souza M.D. unspecified Hospitalists organism Office Visit 07/31/2019 [facility] And Lorenza Patton, R91.8 Other nonspecific 12:54p Sleep Services Of abnormal finding Elementary Substitute Teacher of lung field R50.9 Fever, unspecified R09.02 Hypoxemia Office Visit 07/30/2019 [facility] Iain Dowd J18.9 Pneumonia, 9:27a edwar Vasquez M.D. 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 R09.02 Hypoxemia R50.9 Fever, unspecified Office Visit 06/21/2019 [facility] And Marsha J84.116 Cryptogenic 8:00a [facility] ROZINA Ryan organizing Elementary Substitute Teacher pneumonia J98.4 Other disorders of lung J30.89 Other allergic rhinitis Office Visit 05/22/2019 11:30a Pulmonology And Lorenza J84.116 Cryptogenic Sleep Services Of MD Abdi organizing Elementary Substitute Teacher pneumonia J98.4 Other disorders of lung J20.9 Acute bronchitis, unspecified Office Visit 05/10/2019 11:00a Pulmonology And Lorenza R91.8 Other nonspecific Sleep Services Of MD Abdi abnormal finding Elementary Substitute Teacher of lung field Z87.891 Personal history of nicotine dependence Office Visit 04/18/2019 2:20p [facility] Internal Bret Allan, R05 [facility] [employer] PROGRAM MANAGER Office Visit 04/05/2019 10:20a [facility] Internal Bret Allan, J01.90 Acute sinusitis, [facility] REGIONAL PROGRAM MANAGER unspecified J20.9 Acute bronchitis, unspecified B37.0 Candidal stomatitis Assessments Date Code Description Provider 08/07/2019 J18.9 Pneumonia, unspecified organism Bret Lemus, REGIONAL PROGRAM MANAGER 07/31/2019 R06.02 Shortness of breath Salas Aguilar M.D. 07/31/2019 J18.9 Pneumonia, unspecified organism Iain Dowd M.D. 07/31/2019 R91.8 Other nonspecific abnormal finding of Lorenza Patton MD lung field 07/31/2019 R50.9 Fever, unspecified Lorenza Patton MD 07/31/2019 R09.02 Hypoxemia Lorenza Patton MD 07/30/2019 J18.9 Pneumonia, unspecified organism Iain Dowd M.D. 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 Lorenza Patton MD 05/22/2019 J98.4 Other disorders of lung Lorenza Patton MD 05/22/2019 J20.9 Acute bronchitis, unspecified Lorenza Patton MD 05/10/2019 R91.8 Other nonspecific abnormal finding of Lorenza Patton MD lung field 05/10/2019 Z87.891 Personal history of nicotine Lorenza Patton MD dependence 04/18/2019 R05 Cough Bretbartolo Lemus NP 04/05/2019 J01.90 Acute sinusitis, unspecified Bretbartolo Lemus NP 04/05/2019 J20.9 Acute bronchitis, unspecified Bretbartolo Lemus NP 04/05/2019 B37.0 Candidal stomatitis Bret Lemus NP Plan of Treatment Future Appointment(s):02/12/2020 11:00 am - Bret Lemus NP at [facility] Internal Medicine - [facility]11/16/2019 8:00 am - Marsha Ryan NP at [facility]08/07/2019 - Bret Lemus NPJ18.9 Pneumonia, unspecified organismNew [...] MD Sent 05/17/[address] [place] [id number] [phone]
[2019-10-02] MEDS ORDERED: Heparin 2 UNITS/ML IVPREMIX* 3,000 ML IV ONE (09:50)
[2019-10-02] MEDS ORDERED: Ticagrelor* 90 MG TAB PO ONE ×3 (09:51→12:20)
[2019-10-02] MEDS ORDERED: Iodixanol 320 (CONTRAST) 100 ML SDV ONE ×2 (09:51→10:01)
[2019-10-02] MEDS ORDERED: Nitroglycerin TAB 0.4 MG* 0.4 MG TAB ONE ×2 (09:51→12:15)
[2019-10-02] MEDS ORDERED: Lidocaine 1% INJ* 10 MG/ML 30 ML SDV ONE (09:51)
[2019-10-02] MEDS ORDERED: nitroGLYCERIN DRIP* 0 MCG/0 ML BTL ONE (09:51)
[2019-10-02] MEDS ORDERED: Heparin VIAL(*) 5000 UNITS/ML VIAL (FIVE THOUSAND) ONE (09:51)
[2019-10-02] MEDS ORDERED: nitroGLYCERIN DRIP* 25,000 MCG/250 ML BTL ONE (09:52)
[2019-10-02] MEDS ORDERED: Aspirin 81 mg CHEW TAB* 81 MG TAB.CHEW ONE ×3 (09:53→10:01)
[2019-10-02] MEDS ORDERED: VERAPAMIL 2.5 MG/ML 2 ML VIAL ** 5 mg/2 ml ONE (09:54)
[2019-10-02] MEDS ORDERED: Heparin(*) 1000 UNIT/ML 10 ML VIAL CATH LAB IV ONE (09:54)
[2019-10-02] MEDS ORDERED: NS 0.9% 1000 ML** 1,000 ML IV ONE (09:56)
--- NOTE | 2019-10-02 09:56 | ED ---
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 Patient states that he had moved a gas jug in his garage over a short distance and later sat in his car when the chest pain began. The chest pain is described as a sharp and dull sensation that radiates to the back and arm. He states the pain is currently worse in the back than the chest. Patient also admits nausea and mild shortness of breath. He denies vomiting or abdominal pain. Patient takes aspirin at night, and last took an 81 mg aspirin 30 minutes SOFTWARE ASSET MANAGER. No aggravating or alleviating factors are reported. He takes Nexium and HLD medications, but denies being on blood thinners. PMHx is significant for HLD, but he denies a history of blood clots, AAA, UT, DM, or HTN. PSHx is significant for stent placement in 1998. Recently, he was seen at [facility] and diagnosed with pneumonia. Patient is a former smoker. Allergies to any medications are denied. - History of Current Complaint Chief Complaint: EDChestPainROMI Time Seen by Provider: 10/02/19 09:44 Hx Obtained From: Patient Onset/Duration: Atraumatic, Still Present Timing: Constant Initial Severity: Moderate Current Severity: Moderate Pain Scale Used: 0-10 Numeric Chest Pain Radiates: Yes Chest Pain Radiates To:: Back, Arm Character: Dull/Aching, Sharp/Stabbing Aggravating Factor(s): Nothing Alleviating Factor(s): Nothing Associated Signs and Symptoms: Positive: Chest Pain, Shortness of Breath, Nausea. Negative: Abdominal Pain, Vomiting - Additional Pertinent History Primary Care Physician: [id number] - Allergy/Home Medications Allergies/Adverse Reactions: Allergies Allergy/AdvReac Type Severity Reaction Status Date / Time No Known Allergies Allergy Verified 10/02/19 09:46 Home Medications: Home Medications Aspirin 81 mg CHEW TAB* 81 mg PO DAILY 04/28/14 [History Confirmed 10/02/19] Esomeprazole(NF) [Nexium(NF)] 20 mg PO BID 04/28/14 [History Confirmed 10/02/19] Gluc Oropeza/Chondro Oropeza A/Vit C/Mn [Glucosamine-Chondroitin Sftgl] 1 cap PO BID 04/28 [History Confirmed 10/02/19] Meclizine TAB* [Antivert 12.5 TAB*] 12.5 - 25 mg PO TID PRN 03/31/15 [History Confirmed 10/02/19] Tamsulosin CAP* [Flomax CAP*] 0.4 mg PO DAILY 11/25/17 [History Confirmed ] Furosemide TAB* [Lasix TAB*] 20 mg PO DAILY 07/30/19 [History Confirmed 10/02/19 ] Rosuvastatin (NF) [Crestor (NF)] 10 mg PO DAILY 07/30/19 [History Confirmed ] Zolpidem TAB* [Ambien*] 5 mg PO BEDTIME PRN 07/30/19 [History Confirmed 10/02/19 ] Fluticasone HFA 110 mcg(NF) [Flovent HFA 110 mcg(NF)] 2 puff INH BID 10/02/19 [ History Confirmed 10/02/19] Fluticasone NASAL SPRAY 50MCG* [Flonase NASAL SPRAY 50MCG*] 2 spray BOTH NARES DAILY 10/02/19 [History Confirmed 10/02/19] LoraTADine TAB(NF) [Claritin 10 MG TAB(NF)] 10 mg PO DAILY 10/02/19 [History Confirmed 10/02/19] Nitroglycerin [Nitro-Bid] 2 % TOPICAL BID 10/02/19 [History Confirmed 10/02/19] Potassium Chlor TAB* [Klor Con ER TAB*] 20 meq PO DAILY 10/02/19 [History Confirmed 10/02/19] Varicella-Zoster Ge/As01b/Pf [Shingrix] 50 mcg IM ONCE 10/02/19 [History Confirmed 10/02/19] Vit C/E/Zn/Coppr/Lutein/Zeaxan [Preservision Areds 2 Softgel] 2 each PO DAILY [History Confirmed 10/02/19] Zolpidem TAB* [Ambien TAB*] 5 mg PO BEDTIME PRN 10/02/19 [History Confirmed ] PMH/Surg Hx/FS Hx/Imm Hx Previously Healthy: Yes Endocrine/Hematology History: Denies: Hx Anticoagulant Therapy, Hx Diabetes, Other Endocrine/Hematological Disorders - Negative blood clot Hx Cardiovascular History: Reports: Hx Hypercholesterolemia Denies: Hx Congestive Heart Failure, Hx Hypertension, Hx Myocardial Infarction, Hx Pacemaker/ICD Respiratory History: Reports: Hx Chronic Bronchitis, Hx Pneumonia Denies: Hx Chronic Obstructive Pulmonary Disease (COPD) GI History: Reports: Hx Gastroesophageal Reflux Disease, Other GI Disorders - Barretts Esophagus History: Reports: Hx Benign Prostatic Hyperplasia, Other Problems/ Disorders - Recurrent UTI Denies: Hx Renal Disease Musculoskeletal History: Reports: Hx Arthritis, Hx Back Problems Sensory History: Reports: Hx Contacts or Glasses, Hx Macular Degeneration - Left eye Denies: Hx Legally Blind, Hx Deafness, Hx Hearing Aid Opthamlomology History: Reports: Hx Contacts or Glasses, Hx Macular Degeneration - Left eye Denies: Hx Legally Blind EENT History: Denies: Hx Deafness Psychiatric History: Denies: Hx Panic Disorder - Cancer History Cancer Type, 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 cardiac stent 1999. fistula;. pilonidal cyst;. APPENDECTOMY Infectious Disease History: No Infectious Disease History: Denies: History Other Infectious Disease, Traveled Outside the [place] in Last 30 Days - Family History Known Family History: Positive: Cardiac Disease, Diabetes, Other - Colon CA - Social History Occupation: Retired Alcohol Use: Rare Hx Substance Use: No Substance Use Type: Reports: None Hx Tobacco Use: Yes Smoking Status (MU): Former Smoker Have You Smoked in the Last Year: No Review of Systems Positive: Chest Pain Positive: Shortness Of Breath Positive: Nausea. Negative: Abdominal Pain, Vomiting Positive: Myalgia - Back and arm that radiates from the chest All Other Systems Reviewed And Are Negative: Yes Physical Exam - Summary Physical Exam Summary: Constitutional: Well-developed, Well-nourished, Alert. Moderate distress Skin: Warm, Dry HENT: Normocephalic; Atraumatic Eyes: Conjunctiva normal Neck: Musculoskeletal ROM normal neck. (-) JVD, (-) Stridor, (-) Tracheal deviation Cardio: Rhythm regular, rate normal, Heart sounds normal; Intact distal pulses; The pedal pulses are 2+ and symmetric. Radial pulses are 2+ and symmetric. (-) Murmur Pulmonary/Chest wall: Effort normal. (-) Respiratory distress, (-) Wheezes, (-) Rales Abd: Soft, (-) tenderness, (-) Distension, (-) Guarding, (-) Rebound Musculoskeletal: (-) Edema Lymph: (-) Cervical adenopathy Neuro: Alert, Oriented x3 Psych: Mood and affect Normal Triage Information Reviewed: Yes Vital Signs Reviewed: Yes Procedures - Sedation Patient Received Moderate/Deep Sedation with Procedure: No Diagnostics - Laboratory Result Diagrams: 10/02/19 09:45 10/02/19 09:45 Lab Statement: Any lab studies that have been ordered have been reviewed, and results considered in the medical decision making process. - Radiology Chest X-ray Radiology Interpretation Completed By: Radiologist Summary of Radiographic Findings: Chest X-ray IMPRESSION: #. Nonspecific radiographic pattern which could reflect bronchopneumonia or mild pulmonary edema. Correlate with clinical assessment. Reviewed by Dr. Art. - EKG 09:49 Cardiac Rate: NL - 64 BPM EKG Rhythm: Sinus Rhythm ST Segment: Other Ectopy: None Summary of EKG Findings: EKG at 09:49 shows normal sinus rhythm with 64 BPM, ST elevations in lead I and aVL with reciprocal changes in lead III and aVF. Dr. Art has reviewed and interpreted this EKG. 09:39 Cardiac Rate: NL - 64 BPM EKG Rhythm: Sinus Rhythm ST Segment: Other Ectopy: None Summary of EKG Findings: EKG at 09:39 shows normal sinus rhythm with 64 BPM, ST elevations in lead I and aVL with reciprocal changes in lead III and aVF. Dr. Art has reviewed and interpreted this EKG. 09:55 Cardiac Rate: NL - 73 BPM EKG Rhythm: Sinus Rhythm ST Segment: Other Ectopy: None Summary of EKG Findings: EKG at 09:55 shows normal sinus rhythm with 73 bpm, ST elevations in lead I and aVL with reciprocal changes lead III and aVF. Dr. Art has reviewed and interpreted this EKG. 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 Patient states that he had moved a gas jug in his garage over a short distance and later sat in his car when the chest pain began. The chest pain is described as a sharp and dull sensation that radiates to the back and arm. He states the pain is currently worse in the back than the chest. Patient also admits nausea and mild shortness of breath. He denies vomiting or abdominal pain. Patient takes aspirin at night , and last took an 81 mg aspirin 30 minutes SOFTWARE ASSET MANAGER. No aggravating or alleviating factors are reported. He takes Nexium and HLD medications, but denies being on blood thinners. PMHx is significant for HLD, but he denies a history of blood clots, AAA, UT, DM, or HTN. PSHx is significant for stent placement in 1998. [facility] and [facility] with [facility]. Patient is a former smoker. On exam, patient is in moderate distress. In the ED course, patient was given IV fluids. EKG at 09:39 shows normal sinus rhythm with 64 BPM , ST elevations in lead I and aVL with reciprocal changes in lead III and aVF. EKG at 09:55 shows normal sinus rhythm with 73 bpm, ST elevations in lead I and aVL with reciprocal changes lead III and aVF. Chest X-ray IMPRESSION: #. Nonspecific radiographic pattern which could reflect bronchopneumonia or mild pulmonary edema. Correlate with clinical assessment. Laboratory abnormal findings: troponin 0.05. All other abnormal lab results are not pertinent to current cc. At 10:00, Dr. Naima Ivan assessed the patient at bedside and will take the patient to the skill labor for a diagnosis of STEMI. Patient will be admitted to [facility] with a diagnosis of STEMI. - Diagnoses Provider Diagnoses: STEMI (ST elevation myocardial infarction) During the Visit The Following Alert/Code Occurred: STEMI - PATIENT ARRIVAL TO THE ED AT 09:38. STEMI ER ROOM 4 CALLED AT 09:44. DR. ART PRESENT TO ASSESS THE PATIENT AT 09:45. - Provider Notifications Discussed Care Of Patient With: Naima Ivan - At 10:00, Dr. Naima Ivan assessed the patient at bedside and will take the patient to the skill labor for a diagnosis of STEMI. Time Discussed With Above Provider: 10:00 Instructed by Provider To: Admit As Inpatient Discharge ED - Sign-Out/Discharge Documenting (check all that apply): Patient Departure - Admit - Discharge Plan Condition: Stable Disposition: ADMITTED TO [facility] - Billing Disposition and Condition Condition: STABLE Disposition: Admitted to [facility] - Attestation Statements Document Initiated by Scribe: Yes Documenting Scribe: Rachel Dahl Provider For Whom [place] is Documenting (Include Credential): Gordon Art DO Scribe Attestation: IRachel, scribed for Gordon Art DO on 10/02/19 at 1212. Scribe Documentation Reviewed: Yes Provider Attestation: The documentation as recorded by the scribe, Rachel Dahl accurately reflects the service I personally performed and the decisions made by me, Gordon Art DO Status of Scribe Document: Viewed
[2019-10-02 09:57] LABS: ABS Basophils 0.1 10^3/ul (0-0.2); ABS Eosinophils 0.5 10^3/ul (0-0.6); ABS Lymphocytes 4.1 10^3/ul (1.0-4.8); ABS Neutrophils 4.4 10^3/ul (1.5-7.7); Eosinophil % 5.2 %; Hematocrit 47 % (42-52); Hemoglobin 16.4 g/dL (14.0-18.0); Lymphocyte % 40.8 %; Mean Corpuscular HGB Conc 35 g/dL (31-36); Mean Corpuscular Hemoglobin 31 pg (27-31); Mean Corpuscular Volume 89 fL (80-94); Mean Platelet Volume 6.8 fL (7.4-10.4); Nucleated Red Blood Cells % 0.1; Platelet Count 302 10^3/uL (150-450); Red Blood Count 5.28 10^6 /uL (4.18-5.48); Red Cell Distribution Width 14 % (10-15); White Blood Count 10.1 10^3/uL (3.5-10.8)
[2019-10-02] MEDS ORDERED: Heparin VIAL(*) 5000 UNITS/ML VIAL (FIVE THOUSAND) IV ONE (09:59)
[2019-10-02] MEDS ORDERED: hydrALAZINE IV* 20 MG/ML VIAL IV SLOW PU ONE (09:59)
[2019-10-02] MEDS ORDERED: Aspirin 81 mg CHEW TAB* 81 MG TAB.CHEW PO ONE (09:59)
[2019-10-02] MEDS ORDERED: hydrALAZINE IV* 20 MG/ML VIAL ONE (10:00)
[2019-10-02 10:07] LABS: Activated Partial Thrombo Time 32.2 seconds (26.0-38.0); INR 1.1 (0.82-1.09)
[2019-10-02 10:15] LABS: ALT 15 U/L (7-52); AST 24 U/L (13-39); Albumin 4.4 g/dL (3.2-5.2); Albumin/Globulin Ratio 1.1 (1-3); Alkaline Phosphatase 80 U/L (34-104); Anion Gap 10 mmol/L (2-11); BUN/Creatinine Ratio 18.2 (8-20); Blood Urea Nitrogen 22 mg/dL (6-24); CO2 Carbon Dioxide 26 mmol/L (22-32); Calcium 9.9 mg/dL (8.6-10.3); Chloride 101 mmol/L (101-111); EGFR African American 69.3 (>60); EGFR Non-African American 57.3 (>60); Globulin 3.9 g/dL (2-4); Glucose 126 mg/dL (70-100); Potassium 3.6 mmol/L (3.5-5.0); Sodium 137 mmol/L (135-145); Total Protein 8.3 g/dL (6.4-8.9)
[2019-10-02] MEDS ORDERED: Midazolam* 1 MG/ML 5 ML VIAL (5 MG) ONE (10:15)
[2019-10-02] MEDS ORDERED: fentaNYL* 50 MCG/ML 2 ML VIAL (100 MCG VIAL) ONE (10:15)
[2019-10-02 10:17] LABS: Troponin I 0.05 ng/mL (<0.03)
[2019-10-02] MEDS ORDERED: Metoprolol Tartrate IV* 1 MG/ML 5 ML VIAL ONE (10:59)
[2019-10-02] MEDS ORDERED: Heparin 2 UNITS/ML IVPREMIX* 1,000 ML IV ONE (11:01)
[2019-10-02] MEDS ORDERED: Al Hydrox/Mg Hydrox/Simet LIQ* 30 ML UDC ONE (11:08)
[2019-10-02 12:34] LABS: Creatine Kinase 76 U/L (10-223)
[2019-10-02 12:41] LABS: CKMB ng/mL 4.2 ng/mL (0.6-6.3)
--- NOTE | 2019-10-02 13:09 | HP ---
DATE OF ADMISSION: 10/02/2019. ATTENDING PHYSICIAN: Dr. Naima Ivan* (dictated by Sigrid Healy NP). PRIMARY CARE PHYSICIAN: Dr. Bethel Sol. PRIMARY HOTEL DESK CLERK: Dr. Patton. PRIMARY FEED HANDLER HISTORICALLY: Dr. Tra Vargas. CHIEF COMPLAINT: Sudden onset chest pain. HISTORY OF PRESENT ILLNESS: This is a pleasant, 84-year-old male patient with a notable history of coronary artery disease who underwent coronary intervention to right coronary artery in 1988, in addition to history of recurrent cryptogenic pneumonia, hypertension, and prior tobacco use who presented to [facility] this morning after sudden onset substernal chest pain radiating to his back and left upper extremity. The patient states that he has been in his usual state of health, denies any recent contact with COVID positive patients, cough, fever, chills, diarrhea. He states that this morning around 9:15, after carrying a five pound gasoline container and ambulating back to his car, he developed sudden onset substernal chest discomfort radiating to the mid portion of his back and up to the left extremity. The patient states the pain was constant and ongoing, thus he presented to [facility]. While being evaluated in the emergency department, STEMI alert was called. ECG in the emergency department revealed sinus rhythm, rate [address] segment elevation, 1.5 mm in lead 1, AVL with reciprocal changes noted in lead 3, aVF. The patient was hypertensive in the emergency department. Blood pressure was systolic 188. He was given IV Hydralazine, IV Lopressor, 5,000 units of IV Heparin, and aspirin 325 mg. He was taken urgently to the bed laborer due to ST segment elevation and myocardial infarction. The patient denies a history of stroke, bleeding complications. Platelets were normal. INR was 1.1. The patient underwent urgent cardiac catheterization which revealed a heavily calcified ostial right coronary lesions. Due to heavily calcified lesion, surgical physician assistant felt that it was best suited to be intervened upon at a tertiary care center with CT back up. The patient is currently asymptomatic, resting in supine position in our holding area. Femoral access sheath is still in place. Last echocardiogram according to our medical records was 55 to 60 percent, mild to moderate left atrial dilation, trace mitral and aortic insufficiency, trace aortic insufficiency, mild tricuspid insufficiency. Last ischemic evaluation appears to be via stress test in 2007. Per report, the patient exercised for 7 minutes 20 seconds achieving 9 METS. He had appropriate blood pressure and heart rate response. There were no arrhythmias. He had a 1.[address] segment depression at peak exercise with mild chest discomfort. ST segment normalized within two minutes. Unfortunately, I do not have the MPI report available. PAST MEDICAL HISTORY: 1. Coronary artery disease. 2. Recurrent cryptogenic organizing pneumonia. 3. History of BPH. 4. Chronic neck pain. 5. Vertigo. PAST SURGICAL HISTORY: 1. Prior PCI to right coronary artery 1988. 2. Appendectomy. 3. Fistula surgery. ALLERGIES: LIPITOR, CIPRO. FAMILY HISTORY: Father had a history of hypoglycemia, due to heart disease in his 80s. Mother had diabetes, colon cancer, due to complications related to heart disease. 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 Family lives close to him and is very helpful in regards to his care. He is a former tobacco user, quit 28 years ago in 1981. Denies alcohol use or drug use. Denies recent travel of sick contacts. REVIEW OF SYSTEMS: All systems have been reviewed and are otherwise negative except as mentioned in HPI. PHYSICAL EXAMINATION GENERAL: The patient is lying in the supine position in our bed laborer post cardiac cath. He is comfortable and asymptomatic at this time. He appears in no apparent distress. VITAL SIGNS: Temperature 97.6, pulse 73, oxygenation 100 percent on room air, respirations 19, and blood pressure 134/72. HEENT: Head is atraumatic, normocephalic. Oral mucosa is moist, tongue is midline. NECK: Supple, trachea midline. No JVD, no carotid bruits. CARDIAC: Normal S1, S2. Regular rate and rhythm. No murmur, rub or gallop are noted. LUNGS: Lungs auscultated anteriorly. No evidence of adventitious breath sounds. Respirations nonlabored. /GI: Abdomen is soft, nontender, nontender. Normoactive bowel sounds times four. EXTREMITIES: There is a femoral sheath cath noted in the right femoral region. There is no pedal edema. No clubbing, no cyanosis. PERIPHERAL VASCULAR: 3+ brachial pulse palpated bilaterally and symmetrically. 2+ dorsal pedis pulse palpated bilaterally and symmetrically. LABORATORY DATA: Blood work reviewed from 10/02/2019: Sodium 137, potassium 3.6, creatinine 1.21, glucose 126, troponin #1 0.05; INR 1.1; white count 10, hemoglobin 16.4, hematocrit 302. As mentioned before, sinus rhythm rate [address] segment elevation in 1, AVL with reciprocal change in lead 3, aVF. Left heart catheterization per surgical physician assistant, Dr. Naima Ivan : Heavy calcified ostial right coronary lesion. ASSESSMENT AND PLAN: 1. Status post inferior STEMI presenting with sudden onset substernal chest pain radiating to the left upper extremity. The patient presented within 30 minutes of symptom onset. Initial troponin is 0.05. LVF was preserved on echo July of 2019. The patient underwent left heart catheterization which revealed a heavy calcified ostial right coronary lesion felt to be too high risk for intervention hear at our facility, thus recommended for transfer to tertiary care center with CT back up. The patient is on aspirin 81 mg a day and was given aspirin 325 mg p.o. times one today, 5,000 units of IV Heparin therapy, and 10 mg of IV Hydralazine. Currently, he is normotensive and asymptomatic. Plan is to pull right femoral sheath and then re-initiate IV Heparin therapy. Will cycle isoenzymes and await for accepting physician at [facility]. The patient is listed a full code. 2. History of coronary artery disease, historically on aspirin and statin therapy. Unsure why the patient is not on beta mak therapy. Could be related to history of recurrent cryptogenic organizing pneumonia. Will need to be addressed. 3. History of hyperlipidemia on statin therapy. Goal LDL less than 70. 4. Disposition pending course. Dr. Naima Ivan has seen and examined the patient and agrees with the above assessment and plan. Thank you for this kind consultation. SIGRID HEALY NP [id number]/[facility] #: [id number] [place]
[2019-10-02 13:18] LABS: Troponin I 1.46 ng/mL (<0.03)
[2019-10-02 15:02] VITALS: BP 145/73
--- NOTE | 2019-10-02 17:01 | CATH ---
CARDIAC CATHETERIZATION REPORT: ADDENDUM: CORONARY ANGIOGRAPHY: 1. Left main: Normal. 2. Left anterior descending is a large vessel with heavy calcification in the proximal segment. There is a smooth 50% focal lesion just proximal to a large second diagonal branch. The mid left anterior descending has diffuse mild luminal irregularities. There are large first and second diagonal branches, and there is no significant disease in either diagonal branch. 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 3. The circumflex is nondominant and has 1 large bifurcating obtuse marginal branch. There are minimal luminal irregularities in the mid section of that second obtuse marginal branch. There is heavy calcification in the proximal segment of the circumflex. 4. Right coronary artery: Large vessel with a large, dominant vessel with heavy calcification at the ostium and a focal ostial stenosis of approximately 80%. There is heavy calcification throughout the proximal and mid segments of the right coronary artery. There is proximal ectasia, and there are several segments of proximal and mid segment ectasia. The previously placed right coronary artery stent may have some moderate mid section restenosis. There is NI-3 flow in all 3 vessels. CONCLUSION: 1. Right dominant coronary system with disease as described above. Most importantly, there is a severe, heavily calcified ostial lesion of the right coronary and the big dominant right vessel. 2. During the case when the patient's blood pressure was better controlled, his symptoms resolved and repeat ECG showed normalization of his ST segments. 3. Because of the patient's stable clinical status and the risk associated with the ostial right lesion, it was decided after discussion with the patient and his family to transfer the patient to [facility] for possible semielective PCI of the ostium of the right coronary. 4. There were no complications. 5. The patient was returned to his room in stable condition, chest pain-free and with normalization of his ST segment and T-wave changes. [id number]/[facility] #: [id number] [facility]
--- NOTE | 2019-10-02 17:10 | CATH ---
CARDIAC CATHETERIZATION REPORT: DATE OF PROCEDURE: 10/02/19 PROVIDER: Dr. Naima Ivan. INDICATION FOR PROCEDURE: ST-segment inferior wall myocardial infarction and hypertensive crisis. PROCEDURE: Coronary angiography. CONSENT: The patient was interviewed and examined in the emergency department where the options, risks, and benefits were explained. He understood and consented to the procedure. EQUIPMENT UTILIZED: 1. A 6-Chadian femoral artery sheath. 2. A 6-Chadian JL4 diagnostic catheter. 3. A 6-Chadian JR4 guiding catheter. MEDICATIONS GIVEN DURING THE PROCEDURE: 1. The patient had received 5000 units of heparin, 324 mg of aspirin in the emergency department, and he was also given hydralazine 10 mg IV for blood pressure control. 2. 1% Xylocaine was utilized for local anesthesia over the right femoral artery. 3. During the case, the patient was given metoprolol IV 2.5 mg in 2 doses to treat hypertension. DESCRIPTION OF PROCEDURE: The patient was brought to the cardiac helper animal laboratory in an emergent situation. A time-out was performed. He was prepped and draped in the usual sterile fashion and local anesthesia was given to the right femoral artery area. The 6-Chadian sheath was inserted into the right femoral artery without incident. Diagnostic coronary angiography was performed documenting results as detailed below. Over a 0.035 guidewire, the JL4 diagnostic catheter was used to successfully intubate the left main coronary artery and multiple views were taken in different angles. The JL4 was withdrawn over a guidewire and the JR4 guide catheter was used to intubate the right coronary ostium and multiple views were taken from several different angles. The guide catheter was withdrawn over a 0.35 guidewire. The aortic valve was not crossed. The sheath was sutured to the skin for removal with manual compression when the ACT became subtherapeutic. RESULTS: CORONARY ANGIOGRAPHY: 1. Left main: Normal. 2. Left anterior descending is a large vessel with heavy calcification in the proximal segment. There is a smooth 50% focal lesion just proximal to a large second diagonal branch. The mid left anterior descending has diffuse mild luminal irregularities. There are large first and second diagonal branches, and there is no significant disease in either diagonal branch. 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 3. The circumflex is nondominant and has 1 large bifurcating obtuse marginal branch. There are minimal luminal irregularities in the mid section of that second obtuse marginal branch. There is heavy calcification in the proximal segment of the circumflex. 4. Right coronary artery: Large, dominant vessel with heavy calcification at the ostium and a focal ostial stenosis of approximately 80%. There is heavy calcification throughout the proximal and mid segments of the right coronary artery. There are several segments of proximal and mid segment ectasia. The previously placed right coronary artery stent may have some moderate mid section restenosis. CONCLUSION: 1. Right dominant coronary system with disease as described above and NI 3 flow in all vessels. There is a severe, heavily calcified ostial lesion of the right coronary artery. 2. During the case when the patient's blood pressure was better controlled, his symptoms resolved and repeat ECG showed normalization of his ST segments. 3. Because of the patient's stable clinical status and the risk associated with the ostial right lesion, it was decided after discussion with the patient and his family to transfer the patient to [facility] for possible PCI of the ostium of the right coronary. 4. There were no complications. 5. The patient was returned to his room in stable condition, chest pain-free and with normalization of his blood pressure, ST segment and T-wave changes. [id number]/[facility] #: [id number]/[facility] #: [id number] [place]
== END 2019-10-02 10:06 | disposition short-term general hospital (02) ==
LOC: ED 09:37 → CHICATH 10:06
PROVIDERS: ATTEND Internal Medicine Clinical Cardiac Electrophysiology
DX: I21.19 ST elevation (STEMI) myocardial infarction involving other coronary artery of inferior wall (principal); I25.10 Atherosclerotic heart disease of native coronary artery without angina pectoris; Z87.891 Personal history of nicotine dependence; R06.02 Shortness of breath; R11.0 Nausea; Z79.82 Long term (current) use of aspirin; M79.603 Pain in arm, unspecified; E78.5 Hyperlipidemia, unspecified
CPT/HCPCS: 36415; 71045; 80053; 82550; 82553; 83735; 83880; 84484; 85025; 85347; 85610; 85730; 93005; 99156; 99157; 99285; A9270-GY; C1887; J0360; J1644; J2250; J3010; J3490

== ENCOUNTER 2020-09-08 08:23 | Inpatient (IN) ==
[2020-09-08] MEDS ORDERED: fentaNYL 100 mcg/2 ml 50 MCG/ML VIAL ONE (11:30)
[2020-09-08] MEDS ORDERED: VERAPAMIL 2.5 MG/ML 2 ML VIAL ** 5 mg/2 ml ONE (11:30)
[2020-09-08] MEDS ORDERED: Heparin 1,000 UNIT/ML 10 ml (10,000 UNITS) CATHLAB/DIALYSIS ONE (11:30)
[2020-09-08] MEDS ORDERED: Midazolam 5 mg/5 ml VIAL 1 mg/ml 5 ml VIAL (5 mg) ONE (11:30)
[2020-09-08] MEDS ORDERED: Lidocaine 1% VIAL 10 MG/ML VIAL ONE (11:31)
[2020-09-08] MEDS ORDERED: Iohexol 350 (CONTRAST) 200 ML MDV IV ONE ×3 (11:31→12:45)
[2020-09-08] MEDS ORDERED: nitroGLYCERIN DRIP 25,000 MCG/250 ML BTL ONE (11:31)
[2020-09-08] MEDS ORDERED: Heparin 2 UNITS/ML 1000 mls 3,000 ML IV ONE (11:31)
[2020-09-08] MEDS ORDERED: Bivalirudin 250 MG VIAL ONE (12:31)
[2020-09-09 04:14] LABS: ABS Basophils 0.1 10^3/ul (0-0.2); ABS Eosinophils 0.3 10^3/ul (0-0.6); ABS Lymphocytes 1.3 10^3/ul (1.0-4.8); ABS Monocytes 0.5 10^3/ul (0-0.8); ABS Neutrophils 3.8 10^3/ul (1.5-7.7); Eosinophil % 4.9 %; Hematocrit 34 % (42-52); Hemoglobin 11.7 g/dL (14.0-18.0); Lymphocyte % 22.1 %; Mean Corpuscular HGB Conc 34 g/dL (31-36); Mean Corpuscular Hemoglobin 30 pg (27-31); Mean Corpuscular Volume 87 fL (80-94); Mean Platelet Volume 6.4 fL (7.4-10.4); Platelet Count 227 10^3/uL (150-450); Red Blood Count 3.93 10^6 /uL (4.18-5.48); Red Cell Distribution Width 16 % (10-15)
[2020-09-09 04:33] LABS: BUN/Creatinine Ratio 23.2 (8-20); Calcium 8.7 mg/dL (8.6-10.3); EGFR African American 91.4 (>60); EGFR Non-African American 75.5 (>60); Magnesium 1.8 mg/dL (1.9-2.7); Phosphorus 3.4 mg/dL (2.5-5.0); Potassium 3.9 mmol/L (3.5-5.0)
[2020-09-09 08:52] LABS: HDL Cholesterol 30.9 mg/dL
[2020-09-09 10:10] VITALS: BP 129/58
== END 2020-09-09 11:40 | disposition home or self-care (01) | DRG 247 ==
LOC: CHICATH 08:23 → ICU 14:49
PROVIDERS: ATTEND Specialist